=== PATIENT | female | born 1945 | race Caucasian/White ===

== ENCOUNTER → 2016-12-07 | Outpatient (CLI) | payer MEDICARE, BC | END | disposition home or self-care (01) | LOC: LABPAT 11:50 | PROVIDERS: ATTEND Orthopaedic Surgery Sports Medicine | DX: Z01.812 Encounter for preprocedural laboratory examination (principal) | CPT/HCPCS: 87070 ==

== ENCOUNTER 2016-12-15 10:56 | Inpatient (IN) | payer MEDICARE, BC ==
[2016-12-13 09:01] VITALS: BMI 20.9
[~2016-12-15 10:56] MED LIST: ACETAMINOPHEN TAB 500 MG TAB PO ONE; DEXAMETHASONE SOD PHOSPHATE 10 MG/ML 1 ML VIAL IV ONE; HYDROmorphone 1 MG/ML 1 ML SYRINGE IVP PRN; LACTATED RINGERS 1,000 ML IV SCH; MELOXICAM 7.5 MG TAB PO ONE; MIDAZOLAM 2 MG/2 ML VIAL IV PRN; ONDANSETRON 4 MG/2 ML VIAL IVP ONE; TRANEXAMIC ACID 1,000 MG in SODIUM CHLORIDE 0.9% 100 ML IVPB ONE; ceFAZolin 2 GM in SODIUM CHLORIDE 0.9% 100 ML IVPB ONE
[2016-12-15] MEDS ORDERED: LIDOCAINE 1% 20 ML VIAL (10MG/ML) FOR IV START INTRADERMA ONE (11:25)
[2016-12-15] MEDS ORDERED: PROPOFOL 10 MG/ML 20 ML VIAL IV ONE (12:25)
[2016-12-15] MEDS ORDERED: MIDAZOLAM 2 MG/2 ML VIAL ONE (12:25)
[2016-12-15] MEDS ORDERED: fentaNYL (PF) 50 MCG/ML 2 ML AMP ONE (12:25)
[2016-12-15] MEDS ORDERED: TRANEXAMIC ACID 1,000 MG/10 ML VIAL ONE (12:25)
[2016-12-15] MEDS ORDERED: SODIUM CHLORIDE 0.9% 100 ML BAG ONE (12:25)
[2016-12-15] MEDS ORDERED: MORPHINE SULFATE (PF) 0.3 MG/0.3 ML SYR ONE (12:25)
[2016-12-15] MEDS ORDERED: CLINDAMYCIN 1,800 MG in SODIUM CHLORIDE 0.9% IRRIGATIO 3,000 ML IRRIGATION ONE (12:56)
[2016-12-15] MEDS: ROPIVACAINE 246.25 MG, EPINEPHrine 0.5 MG, KETOROLAC 30 MG, cloNIDine HCL/PF 80 MCG, WA... MISCELLANE ONE ×10 (13:01→13:14)
[2016-12-15] MEDS ORDERED: LACTATED RINGERS 1,000 ML IV ONE ×2 (13:02)
[2016-12-15] MEDS ORDERED: TEMAZEPAM 15 MG CAP PO PRN (14:28)
[2016-12-15] MEDS ORDERED: MAGNESIUM HYDROXIDE 2,400 MG/10 ML CUP PO PRN (14:28)
[2016-12-15] MEDS ORDERED: HYDROcodone/APAP 7.5-325MG 1 EACH TAB PO PRN (14:28)
[2016-12-15] MEDS ORDERED: NA PHOS,M-B/NA PHOS,DI-BA 133 ML ENEMA RECTAL PRN (14:28)
[2016-12-15] MEDS ORDERED: ONDANSETRON 4 MG/2 ML VIAL IVP PRN (14:28)
[2016-12-15] MEDS ORDERED: ACETAMINOPHEN TAB 325 MG TAB PO PRN (14:28)
[2016-12-15] MEDS ORDERED: traMADol 50 MG TAB PO PRN (14:28)
[2016-12-15] MEDS ORDERED: BISACODYL 10 MG SUPP RECTAL PRN (14:28)
[2016-12-15] MEDS ORDERED: HYDROmorphone 1 MG/ML 1 ML SYRINGE IVP PRN ×3 (14:28)
[2016-12-15] MEDS ORDERED: DIAZEPAM 5 MG TAB PO PRN (14:28)
[2016-12-15] MEDS ORDERED: NALOXONE 0.4 MG/ML 1 ML VIAL IV PRN ×2 (14:28→15:16)
--- NOTE | 2016-12-15 15:04 | XR ---
EXAMINATION TYPE: XR knee limited RT DATE OF EXAM: 12/15/2016 2:54 PM CLINICAL HISTORY: Right knee pain and arthritis status post total knee replacement. TECHNIQUE: Portable AP and crosstable lateral views of the right knee are obtained immediately posto peratively. COMPARISON: None FINDINGS: Rincon osseous structures are demineralized. Metallic hardware from total right knee arthr oplasty is seen and appears satisfactory in alignment and position. There is evidence of recent surg racheal with diffuse subcutaneous and suprapatellar gas noted. IMPRESSION: METALLIC HARDWARE FROM TOTAL RIGHT KNEE ARTHROPLASTY IS SATISFACTORY IN ALIGNMENT.
[2016-12-15] MEDS ORDERED: MORPHINE SULFATE 4 MG/ML SYRINGE IVP PRN ×2 (15:16→21:41)
[2016-12-15] MEDS ORDERED: PROMETHAZINE INJ 6.25 MG in SODIUM CHLORIDE 0.9% 50 ML IVPB PRN (15:16)
[2016-12-15] MEDS ORDERED: METOCLOPRAMIDE 5 MG/ML 2 ML VIAL IVP PRN (15:16)
[2016-12-15] MEDS: NALBUPHINE 10 MG/ML AMPUL IV PRN ×2 (16:27→21:32)
[2016-12-15] MEDS: LACTATED RINGERS 1,000 ML IV SCH ×2 (16:41→19:49)
[2016-12-15] MEDS: diphenhydrAMINE 50 MG/ML 1 ML VIAL IVP PRN (19:16)
[2016-12-15] MEDS: ceFAZolin 2 GM in SODIUM CHLORIDE 0.9% 100 ML IVPB SCH (19:46)
[2016-12-15] MEDS: SENNOSIDES-DOCUSATE SODIUM 1 EACH TAB PO SCH (19:46)
[2016-12-15] MEDS: METOPROLOL TARTRATE 25 MG TAB PO SCH (19:46)
[2016-12-15] MEDS: ASPIRIN 325 MG TAB PO SCH (19:47)
--- NOTE | 2016-12-15 21:19 | OP ---
DATE OF SERVICE: 12/15/2016 SURGEON: ISAÍAS WISEMAN MD ROLLWAY WORKER: ALISHA MEJIA PA-C PREOPERATIVE DIAGNOSIS: Right knee osteoarthrosis. POSTOPERATIVE DIAGNOSIS: Right knee osteoarthrosis. OPERATION: Right total knee arthroplasty. ANESTHESIA: Spinal with sedation. ESTIMATED BLOOD LOSS: 100 mL TOURNIQUET TIME: 50 minutes @250 mmHg SPECIMENS REMOVED: COMPLICATIONS: None apparent. DRAINS: None. DISPOSITION: Post-Anesthesia Care Unit OPERATIVE FINDINGS: INDICATIONS: Maria Luz is a 70-year-old female with long-standing history of right knee pain. History and physical examination were consistent with advanced right knee osteoarthrosis. She has been through significant nonoperative management up to this point. Further treatment options were discussed and she has decided to go forward with right total knee arthroplasty. The risks of the procedure were discussed with her in detail. These risks include but are not limited to risk of infection, nerve damage, bleeding, pain, and a small risk of deep vein thrombosis which could lead to fatal probe pulmonary embolism. There is also a risk of loosening of the implant which could require revision operation. The patient understands these risks. All of her questions were answered to her satisfaction. Appropriate informed consent was obtained. DESCRIPTION OF PROCEDURE: Patient was identified in the preoperative holding area. Surgical site was marked by both the patient and myself. She was given 2 grams of Ancef IV for prophylactic purposes. She was then transferred to the operative suite, where she was placed supine on the operating room table. Spinal anesthetic was then administered and dosed per the anesthesia department without apparent complication. Examination under anesthesia was then performed. The patient had full extension. She had 110 degrees of flexion, and the medial collateral ligament, lateral collateral ligament and posterior cruciate ligaments were stable. A tourniquet was then placed high on the right upper thigh, well padded in preparation for surgery. The patient's right lower extremity was then prepped and draped in the usual sterile fashion. Standard surgical pause was then undertaken to ensure that we were operating on the correct site and that appropriate preoperative antibiotics had been given. All staff in the room were in agreement, and we proceeded. The outlines of the patella were then marked with a surgical pen. A planned 12 cm vertical incision centered over the patella was marked with a surgical pen. The leg was then exsanguinated with an Esmarch dressing. The knee was then flexed and the tourniquet was inflated to 250 mmHg. The total tourniquet time for the procedure was 50 minutes. The incision was then made with a 10 blade scalpel. Dissection was carried down sharply to the overlying fascia. Great care was taken to minimize the skin flaps. The knee was then exposed using a standard medial parapatellar approach. A small cuff of quadriceps tendon was then left for suturing. She was in a bit of valgus preoperatively. A very minimal medial release was made just to accept the retractors. The medial meniscus was then excised. The lateral meniscus was also released anteriorly. The leg was then externally rotated. The patella was everted and the knee was flexed. The retractors were then placed to protect the collateral ligaments. I then proceeded to remove the infrapatellar fat pad. This was excised sharply tangentially with the fibers of the patellar tendon. I then proceeded to remove the peripheral osteophytes. This was done with a rongeur. I then proceeded with the distal femoral resection. She did have near-full extension. A planned 9 mm resection was then done. The femoral canal was then entered in the midline of the femur approximately 10 mm anterior to the origin of the posterior cruciate ligament. The jeannie was then advanced down the center of the femur and the jeannie placed intramedullary. Based on preoperative radiographs, the angle between the anatomic and mechanical axis of the femur was approximately 4 to 5 degrees. The valgus angle of distal femoral cutting guide was then set at 4 degrees for the right knee. Distal femoral cutting guide was then advanced over the intramedullary jeannie. This was seated firmly against the femur. I then, as mentioned, planned to take 9 mm off the distal femur. The cutting block was then secured onto the femur with pins. The jig was then removed and the distal femoral cut was made through the slot of the block. The pins were then removed and the distal femoral cutting block was removed. The accuracy of the distal femoral cuts was checked with 2 flat bars. I then proceeded with femoral sizing. The posterior referencing sizing guide was held firmly against the resected distal surface of the femur. Posterior condyles were resting on the posterior plane of the guide. The sizing stylus was then placed onto the anterior femur. Size was measured at a size 8. I then assessed for femoral rotation. The plan was for 3 degrees of external rotation. Three degrees of external rotation was placed onto the jig. These holes were then marked. I then confirmed the rotation by 3 separate methods. This was done using the epicondylar axis as well as Whitesides line and posterior referencing. It was deemed that the external rotation was proper. I then went forward with placing the femoral cutting block. This was placed over the previously placed pinholes. The callie wing was then placed onto the anterior slots to ensure that we would not notch the anterior femur with the anterior femoral cut. I then proceeded with the anterior femoral cut. This was flush with the anterior cortex of the femur. Posterior cuts were then made followed by the anterior chamfer cut and then the posterior chamfer cut. The cutting block was then removed. Throughout the resection, the collateral ligaments were protected with retractors. I then placed a trial 8 femur. It fit very nice medial to lateral and fit flush with the distal end of the femur. The drill holes were then made. I then proceeded with the tibial cut. I planned for a cruciate-retaining knee. The guide was placed and set for varus, valgus and for slope. The height was set for approximately 2 mm resection from the lateral tibial plateau, which was the lower side. I was happy with the alignment and the amount of resection. The cutting block was then pinned to the proximal tibia. The alignment jeannie was removed and the proximal tibia was resected with the reciprocating saw. Again this was done with retractors protecting the collateral ligaments as well as the posterior cruciate ligament. I then proceeded to evaluate the flexion and extension gaps. A 10 mm block was then placed. The flexion and extension gaps were equal. I then proceeded with resection of the posterior osteophytes. She had very minimal posterior osteophytes. This was done using a curved osteotome. This resected the posterior osteophytes, and the posterior capsule stripping was also done off the posterior aspect of the femur at this time. The osteophytes were removed. I then proceeded with resection of the patella. The thickness of the patella was measured using the caliper. Thickness was 22 mm. Thickness of the anticipated patellar dome was then taken into account. Resection was then performed and confirmed to be equal in 4 quadrants using the caliper. Approximately 14 mm of bone remained after the resection. A 29 x 8 mm standard patellar trial was then placed. The holes were then drilled and the trial was then placed. I then proceeded with sizing of the tibial plate. A size E tibial plate fit very nicely. I then placed the trial femur, the tibial tray and the patellar button. A 10 mm trial tibial insert was also placed. The components fit very nicely. She had full extension and flexion. The extension and flexion gaps were equal and stable to both varus and valgus stress. The patella tracked appropriately. The tibial tray rotation was then marked with a Bovie. This was externally rotated properly. I then proceeded with tibial preparation. I first drilled the femoral holes and removed the femoral component. The tibial tray was then set for proper external rotation as well as mediolateral placement onto the tibia. It was then pinned into place. I then proceeded with punching the keel. I then decided to proceed with cementing of all of our components. The knee was thoroughly irrigated with sterile saline solution via pulse lavage. The lateral genicular artery was identified and cauterized. All blood was removed from the bone of the tibia, femur and patella with pulse lavage. I then proceeded with cementing. Two packs of antibiotic bone cement were prepared on the back table by the laboratory tech. I then proceeded with cementing of the tibia first. The cement was impacted into the keel as well as deeply seated into bone. A second coat of cement was then placed. The tibia was then impacted into place. Excess cement was removed with Gómez's and jokers. I then proceeded with cementing of the femoral component. The femoral component was also cemented using standard technique. Excess cement was removed. A 10 mm trial insert was then placed into the knee. It was brought into full extension with a constant axial load placed until the cement had hardened. The patellar component was then cemented. This was held firmly with a compressive device until the cement had dried. When the cement had dried, the knee was taken out of extension. All excess cement was removed from around the prosthesis. I then trialed the knee with a 10 mm insert. Flexion and extension gaps were appropriate. The knee was stable. It came into full extension. I decided to go forward with a 10 mm cross-linked cruciate-retaining tibial insert. Polyethylene was then placed onto the tibial tray and locked into place. The knee was reduced. The knee was again further irrigated with sterile saline solution with antibiotic added. The tourniquet was then deflated. The total tourniquet time for the procedure was 50 mmHg @250 mmHg. Final components were Diana Persona size 8, cruciate-retaining femoral component, a size E tibial tray, a 10 mm medial congruent cruciate-retaining polyethylene insert and a 29 x 8 mm patella. I then proceeded with closure. Again the knee was thoroughly irrigated. The quadriceps tendon and the medial retinaculum were reapproximated with #2 Ethibond suture. The extensor mechanism was then closed with a running #2 Quill suture. Subcutaneous tissues were then closed with 2-0 Vicryl interrupted suture. The skin was closed with a running 3-0 Quill suture. Dermabond was applied to the incision. Sterile compressive dressings were then applied. All sponge and needle counts were deemed correct prior to closure. The patient tolerated the procedure without apparent complication. She was transferred to the recovery room in stable condition.
[2016-12-16] MEDS: diphenhydrAMINE 50 MG/ML 1 ML VIAL IVP PRN ×2 (01:02→08:38)
[2016-12-16] MEDS: NALBUPHINE 10 MG/ML AMPUL IV PRN (02:40)
[2016-12-16] MEDS: ceFAZolin 2 GM in SODIUM CHLORIDE 0.9% 100 ML IVPB SCH (03:18)
[2016-12-16] MEDS: HYDROcodone/APAP 7.5-325MG 1 EACH TAB PO PRN ×4 (05:24→23:42)
[2016-12-16] MEDS: hydrOXYzine PAMOATE 25 MG CAP PO PRN (05:24)
[2016-12-16] MEDS: LEVOTHYROXINE 112 MCG TAB PO SCH (05:24)
[2016-12-16 07:16] LABS: Basophils % (A) 0 %; CH 30.5; CHCM 31.6; Eosinophils # (A) 0.1 k/uL (0-0.7); Eosinophils % (A) 2 %; HCT 34.8 % (34.0-46.0); HDW 2.12; HGB 11.1 gm/dL (11.4-16.0); Luc # (Auto) 0.18; Luc % (Auto) 3; Lymphocytes # (A) 1.2 k/uL (1.0-4.8); Lymphocytes % (A) 19 %; MCH 30.8 pg (25.0-35.0); MCHC 31.8 g/dL (31.0-37.0); Mean Platelet Volume 6.9; Monocytes # (A) 0.6 k/uL (0-1.0); Monocytes % (A) 9 %; Neutrophils # (A) 4.3 k/uL (1.3-7.7); Neutrophils % (A) 67 %; RBC 3.59 m/uL (3.80-5.40); RDW 13.4 % (11.5-15.5); WBC 6.4 k/uL (3.8-10.6)
[2016-12-16] MEDS: ASPIRIN 325 MG TAB PO SCH ×2 (08:35→21:16)
[2016-12-16] MEDS: PARoxetine 20 MG TAB PO SCH (08:35)
[2016-12-16] MEDS: MULTIVITAMINS, THERA 1 EACH TAB PO SCH (08:35)
--- NOTE | 2016-12-16 09:52 | P.PN ---
Progress Note - Text Date:12/16 Time: Patient is status post . Patient seen this morning with VAS score of 2.no c/o of pruritus, no c/o nausea/vomiting, comfortable and doing well.
--- NOTE | 2016-12-16 12:04 | P.PN ---
Subjective Principal diagnosis: s/p right TKA Patient is postop day 1 from right total knee arthroplasty per Dr. Tai. She has minimal complaints of pain today. Pain is at the surgical site as expected. She is denying new complaints. She denies calf pain. She denies numbness, tingling or weakness. Review of systems is negative for fever, chills , chest pain, shortness of breath or other. Objective - Vital Signs Vital signs: Vital Signs Temp 96.9 F L 12/16/16 07:30 Pulse 58 L 12/16/16 07:30 Resp 16 12/16/16 07:30 BP 123/57 12/16/16 07:30 Pulse Ox 98 12/16/16 07:30 Intake & Output 12/15/16 12/16/16 12/16/16 18:59 06:59 18:59 Intake Total 1201 240 Output Total 380 850 300 Balance 821 -850 -60 Weight 58.96 kg Intake: IV 1201 Oral 240 Output: Urine 280 850 300 Uretheral (Hemphill) 850 300 Estimated Blood Loss 100 Other: Voiding Method Indwelling Catheter Indwelling Catheter Indwelling Catheter # Voids 1 - Exam Inspection of right lower extremity shows a benign surgical wound. There is no active bleeding, dehiscence or drainage. Calf is soft and nontender. Neurological status is intact with full motor and sensation throughout the right lower extremity. There is 2+ dorsalis pedis pulses and less than 2 second cap refill present. - Constitutional General appearance: Present: no acute distress - Psychiatric Psychiatric: Present: A&O x's 3, appropriate affect, intact judgment & insight - Labs CBC & Chem 7: 12/16/16 06:39 Labs: Abnormal Lab Results - Last 24 Hours (Table) 12/16/16 Range/Units 06:39 RBC 3.59 L (3.80-5.40) m/uL Hgb 11.1 L (11.4-16.0) gm/dL Assessment and Plan (1) Osteoarthritis of right knee Narrative/Plan: She'll continue with routine postop orthopedic protocol including pain management, wound care, physical therapy, DVT prophylaxis and medical management. Plan will be for her to transfer to [facility] on 12/19/2016 Status: Acute Time with Patient: Less than 30
[2016-12-16] MEDS: LACTATED RINGERS 1,000 ML IV SCH ×2 (14:12→22:15)
--- NOTE | 2016-12-16 16:44 | PN ---
DATE OF SERVICE: 12/16/2016 Maria Luz is postoperative day number one, status post right total knee arthroplasty. She is doing very well today. She has very minimal pain, she has been ambulating with physical therapy. She is resting comfortably, celebrating her birthday in her room when I visited her today. She has no other complaints. EXAM: She is afebrile. Vital signs are stable. The dressing is dry. Incision is dry with no drainage. She has usual mild to moderate amount of postoperative swelling in the knee. The calf is soft. She has an intact flexion-extension, inversion and eversion of the foot and ankle. She has intact lateral, medial, plantar and first dorsal web space sensation and she has 2+ posterior tibial pulse with brisk capillary refill in all digits. IMPRESSION: A postoperative day number one status post right total knee arthroplasty. RECOMMENDATIONS: Maria Luz is doing quite well. We will continue on the postoperative DVT prophylaxis. The patient will continue with the postoperative physical therapy protocol as well. She is hesitant to go home as she does have unstable secondary to bilateral ankle problems. She potentially would like to go to a subacute rehab facility. She is going to be evaluated for that. All of Maria Luz's questions were answered to her satisfaction.
--- NOTE | 2016-12-16 20:49 | CONS ---
DATE OF CONSULTATION: REASON FOR CONSULTATION: Management of hypertension. HISTORY OF PRESENT ILLNESS: This is a 71-year-old female who was admitted for right knee replacement who had failed conservative measures on an outpatient basis. Patient was seen postoperatively; denies having any acute issues. Patient was apparently able to ambulate to the restroom without any difficulty. Denies having any chest pressure, nausea, vomiting, abdominal pain or any complaints of tachycardia. Past medical history includes: 1. SVT. 2. GERD. 3. Hypothyroidism. 4. Hypertension. 5. Depression. ALLERGIES include PENICILLIN. SOCIAL HISTORY: Denies any smoking, alcohol or illicit drug use. FAMILY HISTORY: Not pertinent to current admission. Medications were reviewed. PHYSICAL EXAM: VITAL SIGNS: Temperature 96.9, heart rate 58, respiratory rate 16, blood pressure 123/57. Saturating 98% on room air. GENERALLY: Patient appears to be alert, oriented x3. HEENT: The pupils are equal and reactive to light and accommodation. HEART: S1, S2 present. No murmur appreciated. LUNGS: Good air entry. No wheezing or rhonchi noted. ABDOMINAL EXAM: Soft, nontender, no organomegaly appreciated. GENITOURINARY: No Hemphill in place. EXTREMITIES: Pulses can be palpated distally. Denies any tenderness on gross palpation. SKIN: On a gross skin exam does not appear to have any purpura or any skin rashes that were noted. NEUROLOGICALLY: Grossly cranial nerves 2-12 intact. No motor or sensory deficits noted. LABORATORY DATA: Hemoglobin is 11.1, hematocrit 34.8. White count is 6.4. ASSESSMENT AND PLAN: 1. Severe osteoarthritis, status post right knee replacement. 2. History of hypertension that is controlled. 3. History of anxiety. 4. History of depression. 5. Hypothyroidism. 6. History of supraventricular tachycardia. PLAN: Patient's blood pressures are stable. Exam appears to be within normal limits. Continue ongoing care and physical therapy recommendations per you. Thank you for the consultation. Will follow the patient intermittently with you.
[2016-12-16] MEDS: SENNOSIDES-DOCUSATE SODIUM 1 EACH TAB PO SCH (21:15)
[2016-12-16] MEDS: METOPROLOL TARTRATE 25 MG TAB PO SCH (21:15)
[2016-12-17] MEDS: LACTATED RINGERS 1,000 ML IV SCH ×3 (03:54→20:38)
[2016-12-17] MEDS: LEVOTHYROXINE 112 MCG TAB PO SCH (05:34)
[2016-12-17] MEDS: HYDROcodone/APAP 7.5-325MG 1 EACH TAB PO PRN ×4 (05:53→22:19)
--- NOTE | 2016-12-17 08:56 | P.PN ---
Subjective Principal diagnosis: Status post right total knee arthroplasty This is a pleasant 71-year-old female who is status post right total knee arthroplasty. She seen and evaluated at bedside today. She states that her pain is well-controlled. She has no other complaints at this time. She has had a bowel movement. She's been up ambulating with a walker. She does have some chronic history of foot pain is worried about her balance secondary to her feet. Subsequently she is requesting rehab placement. Objective - Vital Signs Vital signs: Vital Signs Temp 98 F 12/17/16 02:00 Pulse 63 12/17/16 02:00 Resp 18 12/17/16 02:00 BP 116/55 12/17/16 02:00 Pulse Ox 94 L 12/17/16 02:00 Intake & Output 12/16/16 12/17/16 12/17/16 18:59 06:59 18:59 Intake Total 240 Output Total 300 Balance -60 Intake: Oral 240 Output: Urine 300 Uretheral (Hemphill) 300 Other: Voiding Method Indwelling Catheter Toilet # Voids 1 2 - Exam The patient does not appear in acute distress. Alert and orientated 3. Dressing is clean dry and intact. Incision appears fine with no erythema or active drainage. Calf is soft and nontender. Good foot and ankle motion without difficulty. Sensation and circulatory status is intact. - Labs CBC & Chem 7: 12/16/16 06:39 Assessment and Plan (1) Primary osteoarthritis of right knee Status: Acute (2) Status post right knee replacement Status: Acute Plan: 1. Continue with routine postoperative care. 2. Anticoagulation with aspirin. 3. Physical therapy and CPM today. 4. Appreciate input from medicine. 5. Anticipate discharge to rehab likely on Monday.
[2016-12-17] MEDS: ASPIRIN 325 MG TAB PO SCH ×2 (09:10→20:39)
[2016-12-17] MEDS: PARoxetine 20 MG TAB PO SCH (09:10)
[2016-12-17] MEDS: MULTIVITAMINS, THERA 1 EACH TAB PO SCH (09:10)
[2016-12-17] MEDS: SENNOSIDES-DOCUSATE SODIUM 1 EACH TAB PO SCH (20:39)
[2016-12-17] MEDS: METOPROLOL TARTRATE 25 MG TAB PO SCH (20:39)
[2016-12-18] MEDS: LEVOTHYROXINE 112 MCG TAB PO SCH (04:43)
[2016-12-18] MEDS: HYDROcodone/APAP 7.5-325MG 1 EACH TAB PO PRN ×4 (04:43→20:27)
[2016-12-18 07:23] LABS: Basophils % (A) 1 %; CH 30.7; CHCM 32.5; Eosinophils # (A) 0.2 k/uL (0-0.7); Eosinophils % (A) 4 %; HCT 34.2 % (34.0-46.0); HDW 2.15; HGB 11.2 gm/dL (11.4-16.0); Luc # (Auto) 0.19; Luc % (Auto) 3; Lymphocytes # (A) 1.3 k/uL (1.0-4.8); Lymphocytes % (A) 20 %; MCH 31.1 pg (25.0-35.0); MCHC 32.7 g/dL (31.0-37.0); Mean Platelet Volume 7.2; Monocytes # (A) 0.5 k/uL (0-1.0); Monocytes % (A) 8 %; Neutrophils # (A) 4.2 k/uL (1.3-7.7); Neutrophils % (A) 65 %; RDW 13.5 % (11.5-15.5); WBC 6.4 k/uL (3.8-10.6); WBC (Perox) 6.54
[2016-12-18] MEDS: ASPIRIN 325 MG TAB PO SCH ×2 (08:46→20:26)
[2016-12-18] MEDS: PARoxetine 20 MG TAB PO SCH (08:47)
[2016-12-18] MEDS: MULTIVITAMINS, THERA 1 EACH TAB PO SCH (08:47)
--- NOTE | 2016-12-18 09:15 | P.PN ---
Subjective Principal diagnosis: Status post right total knee arthroplasty This is a pleasant 71-year-old female who is status post right total knee arthroplasty. She is postoperative day #3. She is seen and evaluated at bedside today. She states that her pain is well-controlled. She has no other complaints at this time. She has had a bowel movement. She's been up ambulating with a walker. Objective - Vital Signs Vital signs: Vital Signs Temp 98.0 F 12/18/16 01:32 Pulse 65 12/18/16 01:32 Resp 16 12/18/16 03:03 BP 114/72 12/18/16 01:32 Pulse Ox 95 12/18/16 01:32 Intake & Output 12/17/16 12/18/16 12/18/16 18:59 06:59 18:59 Intake Total 360 Balance 360 Intake: Oral 360 Other: Voiding Method Toilet # Voids 1 1 - Exam The patient does not appear in acute distress. Alert and orientated 3. Dressing is clean dry and intact. Incision appears fine with no erythema or active drainage. Calf is soft and nontender. Good foot and ankle motion without difficulty. Sensation and circulatory status is intact. - Labs CBC & Chem 7: 12/18/16 06:45 Labs: Abnormal Lab Results - Last 24 Hours (Table) 12/18/16 Range/Units 06:45 RBC 3.60 L (3.80-5.40) m/uL Hgb 11.2 L (11.4-16.0) gm/dL Assessment and Plan (1) Primary osteoarthritis of right knee Status: Acute (2) Status post right knee replacement Status: Acute Plan: 1. Continue with routine postoperative care. 2. Anticoagulation with aspirin. 3. Physical therapy and CPM today. 4. Appreciate input from medicine. 5. Anticipate discharge to rehab likely on Monday.
[2016-12-18] MEDS: hydrOXYzine PAMOATE 25 MG CAP PO PRN ×3 (09:48→20:27)
[2016-12-18] MEDS: LACTATED RINGERS 1,000 ML IV SCH ×2 (12:53→19:20)
[2016-12-18] MEDS: METOPROLOL TARTRATE 25 MG TAB PO SCH (20:27)
[2016-12-18] MEDS: SENNOSIDES-DOCUSATE SODIUM 1 EACH TAB PO SCH (20:27)
[2016-12-19] MEDS: HYDROcodone/APAP 7.5-325MG 1 EACH TAB PO PRN ×3 (03:04→14:09)
[2016-12-19] MEDS: hydrOXYzine PAMOATE 25 MG CAP PO PRN ×3 (03:05→14:09)
[2016-12-19] MEDS: LEVOTHYROXINE 112 MCG TAB PO SCH (05:01)
[2016-12-19] MEDS: LACTATED RINGERS 1,000 ML IV SCH (08:31)
[2016-12-19] MEDS: PARoxetine 20 MG TAB PO SCH (08:31)
[2016-12-19] MEDS: MULTIVITAMINS, THERA 1 EACH TAB PO SCH (08:31)
[2016-12-19] MEDS: ASPIRIN 325 MG TAB PO SCH (08:31)
--- NOTE | 2016-12-19 09:10 | P.DS ---
Providers Date of admission: 12/15/16 10:56 Expected date of discharge: 12/19/16 Attending physician: Ermias Tai Consults: 12/15/16 14:28 Consult Physician Routine Consulting Provider: Imtiaz Bolanos Consult Reason/Comments: post op medical management Do you want consulting provider notified?: Yes Primary care physician: Stated None - Discharge Diagnosis(es) (1) Osteoarthritis of right knee Patient was admitted to the OR 12/15/2016 to undergo right total knee arthroplasty after failed conservative measures as an outpatient. The possible risks, complications, benefits were all reviewed with patient preoperatively, she understood and desired proceed. She underwent the above procedure which she tolerated well without complication. Her postoperative hospital course has remained without complication. On day of discharge she is afebrile, vital signs stable, labs within acceptable ranges, wound benign, abdomen soft nontender, neurovascular status intact, calf is soft and nontender, 2+ dorsalis pedis pulses and less than 2 second cap refill is present, denying any new complaints. Review of systems is negative for fever, chills, chest pain, shortness breath, nausea, vomiting, dizziness, numbness, tingling, weakness, headaches, slurred speech or other. Current Visit: Yes Status: Acute Priority: Medium Procedures: Right total knee arthroplasty Patient Condition at Discharge: Good Plan - Discharge Summary New Discharge Prescriptions: Aspirin 325 mg PO DAILY #60 tab Docusate [Colace] 100 mg PO BID #60 capsule HYDROcodone/APAP 7.5-325MG [Hadley 7.5-325] 1 - 2 each PO Q6HR PRN #90 tab PRN Reason: Pain Discharge Medication List Levothyroxine Sodium [Synthroid] 112 mcg PO DAILY 03/18/14 [History] PARoxetine [Paxil] 20 mg PO DAILY 03/18/14 [History] Ranitidine HCl [Zantac] 150 mg PO DAILY PRN 03/18/14 [History] Bryan 1 tab PO DAILY 12/13/16 [History] Ascorbic Acid [Vitamin C] 500 mg PO DAILY 12/13/16 [History] Aspirin/Caffeine [Anacin 400-32 mg Tablet] 1 tab PO DAILY 12/13/16 [History] Calcium Carbonate/Vitamin D3 [Calcium 500-Vit D3 600 Tablet] 1 tab PO DAILY 05/22 [History] Cholecalciferol [Vitamin D3] 1,000 unit PO DAILY 12/13/16 [History] HYDROcodone/APAP 5-325MG [Hadley 5-325] 1 tab PO Q6HR PRN 12/13/16 [History] Lecithin, Soy [Lecithin] 400 mg PO DAILY 12/13/16 [History] Meloxicam [Mobic] 15 mg PO DAILY 12/13/16 [History] Metoprolol Tartrate [Lopressor] 25 mg PO HS 12/13/16 [History] [place]-3 Fatty Acids/Fish Oil [Fish Oil 1,000 mg Softgel] 1 cap PO DAILY [History] Vitamin B Complex 1 cap PO DAILY 12/13/16 [History] Zinc 50 mg PO DAILY 12/13/16 [History] Acetaminophen [Tylenol] 500 mg PO Q4-6H PRN 12/15/16 [History] Multivitamins, Thera [Multivitamin] 1 tab PO DAILY@1200 12/15/16 [History] Aspirin 325 mg PO DAILY #60 tab 12/19/16 [Rx] Docusate [Colace] 100 mg PO BID #60 capsule 12/19/16 [Rx] HYDROcodone/APAP 7.5-325MG [Hadley 7.5-325] 1 - 2 each PO Q6HR PRN #90 tab [Rx] Follow up Appointment(s)/Referral(s): Ermias Tai MD [STAFF PHYSICIAN] - 2 Weeks Activity/Diet/Wound Care/Special Instructions: Take meds as directed Keep wound clean and dry Weight-bear as tolerated Follow-up with Dr. Tai in office, [phone] Discharge Disposition: TRANSFER TO SNF/ECF
[2016-12-19 12:01] VITALS: BP 125/69; PULSE 65; RESP 16; TEMP 97.8
--- NOTE | 2016-12-19 13:46 | XR ---
EXAMINATION TYPE: XR chest 2V DATE OF EXAM: 12/19/2016 1:40 PM COMPARISON: 12/11/2015 TECHNIQUE: PA and lateral views submitted. HISTORY: ECF placement FINDINGS: The lungs are clear and there is no pneumothorax, pleural effusion, or focal pneumonia. Hyperinflat ion suggests COPD. Biapical pleural thickening noted. There is a granuloma in the left upper lobe. 1 cm nodule right lung base. Previous surgery involving the right shoulder noted. IMPRESSION: 1. No acute process. COPD and evidence of granuloma. 2. 1 cm nodule right lung base. Follow-up x-ray with nipple markers could be obtained.
== END 2016-12-19 15:50 | DRG 470 ==
LOC: 2ORMAIN 10:56 → 3SUR 14:42
PROVIDERS: ADMIT Orthopaedic Surgery Sports Medicine; ATTEND Orthopaedic Surgery Sports Medicine
PROC: 0SRC0J9 Replacement of Right Knee Joint with Synthetic Substitute, Cemented, Open Approach (ICD-10-PCS; principal; 2016-12-15 12:30)
DX: M17.11 Unilateral primary osteoarthritis, right knee (principal); I47.1 Supraventricular tachycardia; I10 Essential (primary) hypertension; E03.9 Hypothyroidism, unspecified; M21.42 Flat foot [pes planus] (acquired), left foot; M21.41 Flat foot [pes planus] (acquired), right foot; Z96.652 Presence of left artificial knee joint; K21.9 Gastro-esophageal reflux disease without esophagitis; F32.9 Major depressive disorder, single episode, unspecified; G89.29 Other chronic pain; Z79.899 Other long term (current) drug therapy; Z79.1 Long term (current) use of non-steroidal anti-inflammatories (NSAID); Z79.891 Long term (current) use of opiate analgesic; Z88.0 Allergy status to penicillin
CPT/HCPCS: 71020; 85025

== ENCOUNTER → 2017-05-31 | Outpatient (CLI) | payer MEDICARE, BC ==
--- NOTE | 2017-05-31 12:07 | XR ---
EXAMINATION TYPE: XR chest 2V DATE OF EXAM: 05/31/2017 COMPARISON: 12/19/16 HISTORY: Shortness of breath TECHNIQUE: Frontal and lateral views of the chest are obtained. FINDINGS: Scattered senescent parenchymal changes noted. Hyperinflation compatible with COPD. No evidence for infiltrate. No evidence for atelectasis. Heart size is stable. Mediastinal structures are stable and grossly unremarkable. No evidence for hilar prominence. Degenerative changes dorsal spine. IMPRESSION: 1. No evidence for acute pulmonary disease.
== END | disposition home or self-care (01) ==
LOC: RADXRMAIN 11:43
PROVIDERS: ATTEND Family Medicine
DX: R91.1 Solitary pulmonary nodule (principal)
CPT/HCPCS: 71020

== ENCOUNTER → 2020-08-18 | Outpatient (CLI) | payer BC, MEDICARE ==
[2020-08-18 15:32] LABS: HCT 45.3 % (34.0-46.0); HGB 14.8 gm/dL (11.4-16.0); MCHC 32.6 g/dL (31.0-37.0); Mean Platelet Volume 7.3; Platelet Count 278 k/uL (150-450); RBC 4.63 m/uL (3.80-5.40); RDW 13.2 % (11.5-15.5); WBC 6.5 k/uL (3.8-10.6)
[2020-08-18 15:41] LABS: Albumin 4.3 g/dL (3.5-5.0); Calcium 10.3 mg/dL (8.4-10.2); Total Bilirubin 0.5 mg/dL (0.2-1.3); Total Protein 7.7 g/dL (6.3-8.2)
[2020-08-18 15:53] LABS: Appearance,Urine Clear (Clear); Bacteria,Urine Occasional /hpf; Bilirubin,Urine Negative (Negative); Blood,Urine Negative (Negative); Color,Urine Yellow; Glucose,Urine (UA) Negative (Negative); Hyaline Casts,Urine 9 /lpf (0-2); Ketones,Urine Negative (Negative); Leukocyte Esterase,Urine Small (Negative); Mucus,Urine Rare /hpf; Nitrite,Urine Negative (Negative); PH, Urine 5.5 (5.0-8.0); Protein,Urine Negative (Negative); RBC,Urine 2 /hpf (0-5); Specific Gravity,Urine 1.025 (1.001-1.035); Squamous Epithelial Cell,Urine 1 /hpf (0-4); Urobilinogen,Urine <2.0 mg/dL (<2.0); WBC,Urine 12 /hpf (0-5)
[2020-08-18 16:01] LABS: INR 0.9 (<1.2); Partial Thromboplastin Time 24.5 sec (22.0-30.0); Prothrombin Time 9.8 sec (9.0-12.0)
== END | disposition home or self-care (01) ==
LOC: LABPAT 11:59
PROVIDERS: ATTEND Orthopaedic Surgery
DX: Z01.818 Encounter for other preprocedural examination (principal); Z01.812 Encounter for preprocedural laboratory examination; M16.11 Unilateral primary osteoarthritis, right hip
CPT/HCPCS: 80053; 81001; 85027; 85610; 85730; 86850; 86900; 86901; 87070; 93005

== ENCOUNTER 2020-08-25 08:17 | Day surgery (SDC) | payer BC, MEDICARE ==
[2020-08-19 14:23] VITALS: BMI 20.7
[~2020-08-25 08:17] MED LIST changes: +GABAPENTIN 300 MG CAP PO ONE; -HYDROmorphone 1 MG/ML 1 ML SYRINGE IVP PRN; -LACTATED RINGERS 1,000 ML IV SCH; +LIDOCAINE 1% (10MG/ML) FOR IV START INTRADERMA PRN; -ceFAZolin 2 GM in SODIUM CHLORIDE 0.9% 100 ML IVPB ONE
[2020-08-25] MEDS: LACTATED RINGERS 1,000 ML IV SCH (08:54)
[2020-08-25] MEDS ORDERED: ePHEDrine SULFATE/0.9% NACL/PF 50 MG/5 ML SYRINGE IV ONE (08:58)
[2020-08-25] MEDS ORDERED: PROPOFOL 10 MG/ML 20 ML VIAL IV ONE (08:58)
[2020-08-25] MEDS ORDERED: TRANEXAMIC ACID 1,000 MG/10 ML VIAL ONE (08:58)
[2020-08-25] MEDS ORDERED: SODIUM CHLORIDE 0.9% IRRIG 1,000 ML BTL IRRIGATION ONE (08:58)
[2020-08-25] MEDS ORDERED: HEPARIN SODIUM,PORCINE 10,000 UNIT/ML 1 ML VIAL ONE (08:58)
[2020-08-25] MEDS ORDERED: MIDAZOLAM 2 MG/2 ML VIAL ONE (08:58)
[2020-08-25] MEDS ORDERED: fentaNYL (PF) 50 MCG/ML 2 ML AMP ONE (08:58)
[2020-08-25] MEDS ORDERED: diphenhydrAMINE 50 MG/ML 1 ML VIAL ONE (08:58)
[2020-08-25] MEDS ORDERED: SODIUM CHLORIDE 0.9% 100 ML BAG ONE (08:58)
[2020-08-25] MEDS ORDERED: ceFAZolin 3,000 MG in SODIUM CHLORIDE 0.9% IRRIGATIO 3,000 ML IRRIGATION ONE (09:04)
[2020-08-25] MEDS ORDERED: NALOXONE 0.4 MG/ML 1 ML VIAL IV PRN (09:14)
[2020-08-25] MEDS ORDERED: MAGNESIUM HYDROXIDE 2,400 MG/10 ML CUP PO PRN (09:14)
[2020-08-25] MEDS ORDERED: ONDANSETRON 4 MG/2 ML VIAL IVP PRN (09:14)
[2020-08-25] MEDS ORDERED: HYDROcodone/APAP 5-325MG 1 EACH TAB PO PRN (09:14)
[2020-08-25] MEDS ORDERED: HYDROmorphone 0.5 MG/0.5 ML SYRINGE IVP PRN ×3 (09:14)
[2020-08-25] MEDS: ROPIVACAINE 246.25 MG, EPINEPHrine 0.5 MG, KETOROLAC 30 MG, cloNIDine HCL/PF 80 MCG, WA... MISCELLANE ONE ×10 (09:25→10:12)
[2020-08-25] MEDS ORDERED: LACTATED RINGERS 1,000 ML IV ONE (09:59)
--- NOTE | 2020-08-25 10:20 | P.OP ---
Date of Procedure: 08/25/20 Preoperative Diagnosis: severe osteoarthritis right hip Postoperative Diagnosis: severe osteoarthritis right hip Procedure(s) Performed: right total hip arthroplasty with a direct anterior approach Implants: Harley and nephew Polarstem size 3 standard Harley [employer] Nephew R3, 3 hole acetabular shell, 52 mm Harley [employer] Nephew reflection 6.5 mm cancellus screw, 25 mm 2, 20 mm Harley [employer] Nephew R3, XLPE 20 acetabular liner Harley [employer] Nephew Oxinium femoral head 36 m, +0 All components were press-fit. The articulation is Oxinium on polyethylene. Anesthesia: spinal Surgeon: Luis M Walker Chain Carrier #1: Rebecca Pittman Estimated Blood Loss (ml): 150 Pathology: other (bone) Condition: stable Disposition: PACU Indications for Procedure: After failure of conservative treatment we discussed the surgical and nonsurgical treatment options at length. Patient wishes to proceed with a total hip arthroplasty with a direct anterior approach. Complications specific to this procedure were discussed at length, including but not limited to infection, leg length discrepancy, dislocation, and nerve injury. Covid-19 was also discussed at length with the patient, and they are aware of the current policies and procedures. The patient was given the option of delaying surgery, but they elect to proceed knowing these risks. Patient is aware of all these complications and informed consent was obtained Operative Findings: the operative findings are consistent with severe osteoarthritis of the right hip Description of Procedure: Patient was seen and evaluated in the preoperative area, consent was reviewed, and the surgical site was marked with a skin marker. Patient was then brought to the operating room and given prophylactic antibiotics intravenously. 1 g of Tranexamic acid was also given. A spinal anesthetic was administered by the anesthesia department. The patient was then placed on the [place] table with the bony prominences well-padded. The hip area was then prepped and draped in usual sterile fashion. A universal timeout was then performed, which confirmed the patient's name, surgical site, ALLERGIES, and procedure being performed. Next the incision site was located at 1 cm distal and 1 cm lateral to the anterior superior iliac spine. The skin and subcutaneous tissues were sharply incised. Incision was carefully dissected down to the fascia overlying the tensor fascia candelaria muscle. This fascia was then incised in line with the incision. Next, using blunt finger dissection, the tensor fascia candelaria muscle was dissected off its investing fascia. The muscle was then carefully retracted laterally with a cobra retractor over the lateral neck of the femur. Next, the circumflex vessels were identified and cauterized using the AquaMantis device. The anterior hip capsule was then exposed. The capsule was then opened and an inverted T fashion. Cobra retractors were then placed intracapsularly. The proximal femur was then visualized. The femoral neck was then osteotomized appropriate level above the lesser trochanter. Small amount of traction was placed with the [place] table. A small wedge of bone was then removed from the remaining femoral head. Next, using a corkscrew femoral head was easily removed from the acetabulum. On gross visual inspection, the femoral head had complete loss of articular cartilage in multiple periarticular osteophytes. Attention was then turned to the acetabulum. the acetabulum was exposed and any remaining labrum was excised. Sequential reaming of the acetabulum was performed using fluoroscopic guidance. After the first reaming, there was a large medial defect in the acetabulum. the femoral head was then used to bone graft the medial defect in the femoral head was reamed with the acetabulum in situ. When the appropriate size was reached, a trial was then placed. The position and fit of the trial was checked with fluoroscopy. The trial was then removed. Then, using fluoroscopic guidance, the final implant was impacted at 20 of anteversion and 40 of abduction, and fully seated in the acetabulum. 3 screws were then placed in the acetabulum. Again fluoroscopy was used to check position of the screws. Next, the liner was then impacted, with a 20 elevated liner located in the anterior superior quadrant. Component locking was confirmed. Attention was then directed to the femur. With the aid of the [place] table, the femur was externally rotated to approximately 130, extended, and abducted under the opposite leg. A side hook was then placed under the proximal femur, and the side hook elevator was used to elevate the proximal femur. Retractors were then placed. A capsular release was performed, as well as a release of the conjoined tendon, which afforded excellent visualization of the proximal femur. Next, a box osteotome was used to lateralize the proximal femur. A visual merchandise manager was then used to locate the femoral canal. Sequential broaching was then performed with appropriate size which afforded excellent fixation in the proximal femur. A trial was then placed with appropriate head and neck, and the hip was gently reduced with the aid of the [place] table. Fluoroscopy was then used to check position of the components, as well as to ensure equal leg lengths. The hip was then gently dislocated and the trials were then removed. Final implants were then impacted and the hip was again reduced. Final fluoroscopic x-rays confirmed that the components were in anatomic position, as well as equal leg lengths. The hip was also taken through range of motion, and found to be stable. The hip was then copiously irrigated with antibiotic solution with pulsatile lavage. The hip was then irrigated with Irrisept solution. The soft tissues were then injected with a ropivacaine solution, which consisted of 246.25 mg of ropivacaine, 0.5 mg of epinephrine, 30 mg of Toradol, 80 g of clonidine, and 48.45 mL of sterile water, for a total of 100 mL of fluid injected. A second dose of 1 g of Tranexamic acid was also given. the fascia was then closed with 2-0 strata fix suture. The subcutaneous tissue was closed with 3-0 Vicryl. The subcuticular tissue was closed with 3-0 strata fix suture. The skin was then closed with Dermabond glue and a sterile silver dressing. The patient was then transferred to the recovery room in stable condition. The multimedia assistant YURIY Reyna was required due to the complexity of surgery, and the need for skilled ophthalmic surgical assistant for positioning, draping, exposure, retraction, and closure of the wound.
--- NOTE | 2020-08-25 10:49 | XR ---
EXAMINATION TYPE: XR Hip Limited RT DATE OF EXAM: 08/25/2020 Comparison: None Clinical History: 74-year-old female TOTAL ANT RIGHT HIP Findings: 2 intraoperative fluoroscopic images during right hip total arthroplasty. Total fluoroscopy time 52 seconds. Impression: Intraoperative fluoroscopy during right hip total arthroplasty.
--- NOTE | 2020-08-25 11:06 | XR ---
EXAMINATION TYPE: XR Hip Limited RT DATE OF EXAM: 08/25/2020 Comparison: None Clinical History: 74-year-old female Status post hip surgery, assess surgical alignment Findings: Image shows placement of right ventricular enlargement by CT. Both acetabular cup and femoral stem co mponents of the prosthesis appear well seated without prosthetic fracture. Soft tissue air related to recent operation. Alignment grossly anatomic. Impression: Uncomplicated postoperative appearance right total hip arthroplasty.
[2020-08-25] MEDS: HYDROmorphone 0.5 MG/0.5 ML SYRINGE IVP PRN ×2 (11:50→13:30)
[2020-08-25] MEDS: SODIUM CHLORIDE 0.9% 1,000 ML IV SCH (14:32)
--- NOTE | 2020-08-25 15:18 | FL ---
EXAMINATION TYPE: FL guidance operating room DATE OF EXAM: 08/25/2020 CLINICAL HISTORY: Right hip pain. TECHNIQUE: Fluoroscopy. COMPARISON: None. FINDINGS: Fluoroscopic guidance was provided during hip replacement procedure performed by Dr. Neo meraz. A total of 0.52 minutes of fluoroscopic time was utilized during the procedure and 0 spot image s was acquired. IMPRESSION: As Above.
[2020-08-25] MEDS: HYDROcodone/APAP 5-325MG 1 EACH TAB PO PRN (16:43)
[2020-08-25] MEDS ORDERED: SENNOSIDES-DOCUSATE SODIUM 1 EACH TAB PO SCH (21:00)
[2020-08-25] MEDS ORDERED: METOPROLOL TARTRATE 25 MG TAB PO SCH (21:00)
[2020-08-25] MEDS: ASPIRIN 325 MG TAB PO SCH (21:05)
[2020-08-26] MEDS: HYDROcodone/APAP 5-325MG 1 EACH TAB PO PRN ×3 (00:20→11:27)
[2020-08-26] MEDS: SODIUM CHLORIDE 0.9% 1,000 ML IV SCH (01:57)
[2020-08-26] MEDS: LACTATED RINGERS 1,000 ML IV SCH (02:02)
[2020-08-26] MEDS ORDERED: LEVOTHYROXINE 112 MCG TAB PO SCH (06:30)
[2020-08-26 07:14] LABS: Basophils % (A) 0 %; Eosinophils # (A) 0.1 k/uL (0-0.7); Eosinophils % (A) 1 %; HCT 33.5 % (34.0-46.0); Lymphocytes % (A) 13 %; MCH 31.9 pg (25.0-35.0); MCHC 32.1 g/dL (31.0-37.0); MCV 99.5 fL (80.0-100.0); Mean Platelet Volume 7.4; Monocytes # (A) 0.6 k/uL (0-1.0); Monocytes % (A) 8 %; Neutrophils # (A) 5.9 k/uL (1.3-7.7); Neutrophils % (A) 76 %; Platelet Count 191 k/uL (150-450); RBC 3.36 m/uL (3.80-5.40); RDW 13.3 % (11.5-15.5); WBC 7.7 k/uL (3.8-10.6)
[2020-08-26 07:18] LABS: HGB 10.7 gm/dL (11.4-16.0)
[2020-08-26 08:11] VITALS: BP 97/53; PULSE 60; RESP 16; TEMP 98.2
--- NOTE | 2020-08-26 08:22 | P.DS ---
Providers Expected date of discharge: 08/26/20 Attending physician: Luis M Walker Consults: 08/25/20 09:14 Consult Physician Routine Consulting Provider: Gary Velazquez Reason/Comments: medical management Do you want consulting provider notified?: Yes Primary care physician: Corrie Dawson - Discharge Diagnosis(es) (1) Osteoarthritis of right hip Current Visit: Yes Status: Acute (2) S/P total hip arthroplasty Current Visit: Yes Status: Acute Hospital Course: This is a 74-year-old female with known history of degenerative arthritis of the right hip. The patient presents for evaluation. After discussion and consideration patient elects to proceed with total hip arthroplasty. The patient is seen preoperatively by Dr. Walker and medically cleared for surgery by their primary care physician. Patient is admitted to [facility] on 08/25/2020 for total hip arthroplasty. The procedures performed without complication or sequelae. The patient is doing well postoperatively. Labs and vital signs are stable on day of discharge. On day of discharge patient's hip incision is healing well. There is minimal erythema. There is no drainage noted at this time. There is minimal soft tissue swelling to the hip and thigh. Patient has full foot and ankle motion without difficulty or pain. Calf is soft and nontender to palpation. Neurovascular status to the right lower extremity is intact. Patient is discharged home in good condition. Opioid start talking form is reviewed and signed at patient bedside. Please see med rec for accurate list of home medications. Plan - Discharge Summary Discharge Rx Participant: Yes New Discharge Prescriptions: New Aspirin 325 mg PO BID #60 tab HYDROcodone/APAP 5-325MG [[place] 5-325] 1 - 2 tab PO Q6HR PRN #48 tab PRN Reason: Pain Sennosides [Senokot] 2 tab PO DAILY PRN #60 tablet PRN Reason: Constipation No Action PARoxetine [Paxil] 10 mg PO DAILY Levothyroxine Sodium [Synthroid] 112 mcg PO DAILY Cholecalciferol [Vitamin D3 (25 Mcg = 1000 Iu)] 2,000 unit PO DAILY Ascorbic Acid [Vitamin C] 2,000 mg PO DAILY Metoprolol Tartrate [Lopressor] 25 mg PO HS Zinc 100 mg PO DAILY Vitamin B Complex 2 cap PO BID [place]-3 Fatty Acids/Fish Oil [Fish Oil 1,000 mg Softgel] 4 cap PO BID Lecithin, Soy [Lecithin] 800 mg PO BID Calcium Carbonate/Vitamin D3 [Calcium 500-Vit D3 600 Tablet] 1 tab PO BID [place] 1 tab PO DAILY Acetaminophen [Tylenol] 500 - 1,000 mg PO Q4-6H PRN PRN Reason: Pain Multivitamins, Thera [Multivitamin (formulary)] 1 tab PO TID Aspirin/Caffeine [Anacin 400-32 mg Tablet] 3 each PO BID PRN PRN Reason: Pain Famotidine [Pepcid AC] 10 mg PO BID HYDROcodone/APAP 5-325MG [[place] 5-325] 1 tab PO Q6HR PRN PRN Reason: Pain Losartan [Cozaar] 25 mg PO DAILY Meloxicam [Mobic] 15 mg PO DAILY Discharge Medication List Levothyroxine Sodium [Synthroid] 112 mcg PO DAILY 03/18/14 [History] PARoxetine [Paxil] 10 mg PO DAILY 03/18/14 [History] [place] 1 tab PO DAILY 12/13/16 [History] Ascorbic Acid [Vitamin C] 2,000 mg PO DAILY 12/13/16 [History] Calcium Carbonate/Vitamin D3 [Calcium 500-Vit D3 600 Tablet] 1 tab PO BID 12/13/16 [History] Cholecalciferol [Vitamin D3 (25 Mcg = 1000 Iu)] 2,000 unit PO DAILY 12/13/16 [History] Lecithin, Soy [Lecithin] 800 mg PO BID 12/13/16 [History] Metoprolol Tartrate [Lopressor] 25 mg PO HS 12/13/16 [History] [place]-3 Fatty Acids/Fish Oil [Fish Oil 1,000 mg Softgel] 4 cap PO BID 12/13/16 [History] Vitamin B Complex 2 cap PO BID 12/13/16 [History] Zinc 100 mg PO DAILY 12/13/16 [History] Acetaminophen [Tylenol] 500 - 1,000 mg PO Q4-6H PRN 12/15/16 [History] Multivitamins, Thera [Multivitamin (formulary)] 1 tab PO TID 12/15/16 [History] Aspirin/Caffeine [Anacin 400-32 mg Tablet] 3 each PO BID PRN 08/19/20 [History] Famotidine [Pepcid AC] 10 mg PO BID 08/19/20 [History] HYDROcodone/APAP 5-325MG [[place] 5-325] 1 tab PO Q6HR PRN 08/19/20 [History] Losartan [Cozaar] 25 mg PO DAILY 08/19/20 [History] Meloxicam [Mobic] 15 mg PO DAILY 08/19/20 [History] Aspirin 325 mg PO BID #60 tab 08/26/20 [Rx] HYDROcodone/APAP 5-325MG [[place] 5-325] 1 - 2 tab PO Q6HR PRN #48 tab 08/26/20 [Rx] Sennosides [Senokot] 2 tab PO DAILY PRN #60 tablet 08/26/20 [Rx] Follow up Appointment(s)/Referral(s): Luis M Walker DO [Doctor of Osteopathic Medicine] - 2 Weeks Activity/Diet/Wound Care/Special Instructions: Weightbearing as tolerated with walker. Leave dressing intact. Dressing may be removed by home care nurse or by patient in 10 days. May shower with dressing on. Please take aspirin 325mg twice daily for 30 days to prevent blood clots. Recommend use of compression stockings daily until follow up to help prevent swelling and blood clots. May remove at night before sleeping. Please follow-up with [facility] in 2 weeks and call with any questions or concerns, . Discharge Disposition: HOME WITH HOME HEALTH SERVICES
[2020-08-26] MEDS: ASPIRIN 325 MG TAB PO SCH (08:34)
[2020-08-26] MEDS ORDERED: LOSARTAN 25 MG TAB PO SCH (09:00)
[2020-08-26] MEDS ORDERED: MELOXICAM 7.5 MG TAB PO SCH (09:00)
[2020-08-26] MEDS ORDERED: PARoxetine 10 MG TAB PO SCH (09:00)
--- NOTE | 2020-08-26 12:06 | P.CONS ---
History of Present Illness - Reason for Consult Consult date: 08/26/20 medical management Requesting physician: Luis M Walker - History of Present Illness HISTORY OF PRESENT ILLNESS This is a 74-year-old female patient of Dr. Corrie Dawson with past medical history of hypertension, hyperlipidemia, skin cancer, SVT, hypothyroidis m, degenerative disc disease of the neck status post steroid injections done by Dr. Tang, generalized osteoarthritis and possible rheumatoid arthritis. Patient has not been under the care of a conveyor tender. Patient has been brought in the hospital the care of Dr. Walker status post right total hip arthroplasty, direct anterior approach. Patient states her pain is fairly well controlled today. She is anticipating discharge today. She denies having any nausea or vomiting. No lightheadedness or dizziness. She has worked with physical therapy. Discharge plan is home with [facility]. Medication reconciliation has been completed. Patient to have follow-up with Dr. Dawson in the outpatient setting. REVIEW OF SYSTEMS Constitutional: No fever, no chills, no night sweats. No weight change. No weakness, fatigue or lethargy. No daytime sleepiness. EENT: No headache. No blurred vision or double vision, no loss of vision. No loss of Hearing, no ringing in the ears, no dizziness. No nasal drainage or congestion. No epistaxis. No sore throat. Lungs: No shortness of breath, cough, no sputum production. No wheezing. Cardiovascular: No chest pain, no lower extremity edema. No palpitations. No paroxysmal nocturnal dyspnea. No orthopnea. No lightheadedness or dizziness. No syncopal episodes. Abdominal: No abdominal pain. No nausea, vomiting. No diarrhea. No constipation. No bloody or tarry stools.. No loss of appetite. Genitourinary: No dysuria, increased frequency, urgency. No urinary retention. Musculoskeletal: No myalgias. No muscle weakness, no gait dysfunction, no frequent falls. No back pain. No neck pain. Expected right hip pain. Integumentary: No wounds, no lesions. No rash or pruritus. No unusual bruising . No change in hair or nails. Neurologic: No aphasia. No facial droop. No change in mentation. No head injury. No headache. No paralysis. No paresthesia. Psychiatric: No depression. No anxiety. No mood swings. Endocrine: No abnormal blood sugars. No weight change. No excessive sweating or thirst. No cold intolerance. SOCIAL HISTORY Patient is a lifelong nonsmoker. No alcohol abuse. 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 FAMILY HISTORY Mother at age 88 from a massive CVA with history of TIAs. Father from a broken heart syndrome. Patient has one sister with no major medical problems. She does not have any brothers. Patient has 2 children and one has passed from ovarian cancer and one daughter has no major medical problems. PHYSICAL EXAMINATION Gen: This is a 74-year-old female. She is sitting up in a chair and appears comfortable and in no acute distress. HEENT: Head is atraumatic, normocephalic. Pupils equal, round. Sclerae is anicteric. NECK: Supple. No JVD. No lymphadenopathy. No thyromegaly. LUNGS: Clear to auscultation. No wheezes or rhonchi. No intercostal retractions. HEART: Regular rate and rhythm. No murmur. ABDOMEN: Soft. Bowel sounds are present. No masses. No tenderness. EXTREMITIES: No pedal edema. No calf tenderness. Small dressing in place to the right hip with no breakthrough drainage or bleeding. No significant ecchymosis or edema. NEUROLOGICAL: Patient is awake, alert and oriented x3. Cranial nerves 2 through 12 are grossly intact. ASSESSMENT AND PLAN 1. Osteoarthritis status post right total hip arthroplasty, direct anterior approach. Continue current management per orthopedics. Aspirin for DVT prophylaxis, [place] for pain. Incentive spirometry to reduce incidence of atelectasis and hospital-acquired pneumonia. Continue PT and OT. Home care has been arranged. 2. Hypertension. Continue losartan 25 mg daily, Lopressor 25 mg at bedtime. 3. Hyperlipidemia, not currently on statin. 4. History of episode of SVT, stable. 5. Degenerative disc disease of the cervical spine status post third injections, stable. 6. Possible rheumatoid arthritis. Recommend patient follow with conveyor tender. 7. Hypothyroidism. Continue levothyroxine 112 g daily. 8. Recurrent depression. Continue Paxil 10 mg daily. Discharge plan: home today with [facility]. Impression and plan of care have been directed as dictated by the signing physician. Gloria Dudley nurse practitioner acting as scribe for signing physician. Past Medical History Past Medical History: Cancer, GERD/Reflux, Hyperlipidemia, Hypertension, Osteoarthritis (OA), Skin Disorder, Supraventricular Tachycardia (SVT), Thyroid Disorder Additional Past Medical History / Comment(s): Basal cell skin cancer on nose. F eet collapsed. DDD neck, hx steroid inj. Psoriasis at ankles, mild. Varicose veins; edema in BLE late in day. Episode of SVT post-op x1. History of Any Multi-Drug Resistant Organisms: None Reported Past Surgical History: Joint Replacement, Orthopedic Surgery, Tonsillectomy Additional Past Surgical History / Comment(s): Bilat Total Knee. ORIF Rt Shoulder. Squamous skin cell removal from nose Past Anesthesia/Blood Transfusion Reactions: No Reported Reaction Additional Past Anesthesia/Blood Transfusion Reaction / Comm: NO PRIOR GENERAL ANESTHESIA Past Psychological History: Anxiety, Depression Smoking Status: Never smoker Past Alcohol Use History: None Reported Additional Past Alcohol Use History / Comment(s): Patient is a lifelong nonsmoker, no hx alcohol use or abuse Past Drug Use History: Marijuana Additional Drug Use History / Comment(s): uses marijuana butter daily occ for foot pain - Past Family History Daughter(s) Family Medical History: Cancer Additional Family Medical History / Comment(s): OVARIAN CANCER, 2013 Mother Additional Family Medical History / Comment(s): Patient's mother at age 89. She had multiple TIAs. Patient's father at age 89. He had ongoing probl ems with heart disease. Patient has 1 sister that is healthy. Patient has one daughter who has been fighting ovarian cancer for the past 6 years. And she has a second daughter that is healthy. Medications and Allergies Home Medications Medication Instructions Recorded Confirmed Type Levothyroxine Sodium [Synthroid] 112 mcg PO DAILY 03/18/14 08/19/20 History PARoxetine [Paxil] 10 mg PO DAILY 03/18/14 08/19/20 History [place] 1 tab PO DAILY 12/13/16 08/19/20 History Ascorbic Acid [Vitamin C] 2,000 mg PO DAILY 12/13/16 08/19/20 History Calcium Carbonate/Vitamin D3 1 tab PO BID 12/13/16 08/19/20 History [Calcium 500-Vit D3 600 Tablet] Cholecalciferol [Vitamin D3 (25 2,000 unit PO DAILY 12/13/16 08/19/20 History Mcg = 1000 Iu)] Lecithin, Soy [Lecithin] 800 mg PO BID 12/13/16 08/19/20 History Metoprolol Tartrate [Lopressor] 25 mg PO HS 12/13/16 08/19/20 History [place]-3 Fatty Acids/Fish Oil [Fish 4 cap PO BID 12/13/16 08/19/20 History Oil 1,000 mg Softgel] Vitamin B Complex 2 cap PO BID 12/13/16 08/19/20 History Zinc 100 mg PO DAILY 12/13/16 08/19/20 History Acetaminophen [Tylenol] 500 - 1,000 mg PO Q4-6H PRN 12/15/16 08/19/20 History Multivitamins, Thera [Multivitamin 1 tab PO TID 12/15/16 08/19/20 History (formulary)] Famotidine [Pepcid AC] 10 mg PO BID 08/19/20 08/19/20 History HYDROcodone/APAP 5-325MG [[place] 1 tab PO Q6HR PRN 08/19/20 08/19/20 History 5-325] Losartan [Cozaar] 25 mg PO DAILY 08/19/20 08/19/20 History Aspirin 325 mg PO BID #60 tab 08/26/20 Rx HYDROcodone/APAP 5-325MG [[place] 1 - 2 tab PO Q6HR PRN #48 tab 08/26/20 Rx 5-325] Meloxicam [Mobic] 7.5 mg PO DAILY tab 08/26/20 Rx Sennosides [Senokot] 2 tab PO DAILY PRN #60 tablet 08/26/20 Rx Allergies Allergy/AdvReac Type Severity Reaction Status Date / Time Penicillins Allergy Rash/Hives Verified 08/25/20 08:39 morphine AdvReac Severe Itching Verified 08/25/20 08:39 [id number]-[id number]-[id number] Reductase AdvReac muscle pain Verified 08/25/20 08:39 Inhibitor Physical Exam Vitals: Vital Signs Temp Pulse Pulse Resp BP Pulse Ox 08/26/20 07:00 98.2 F 60 16 97/53 94 L 08/26/20 04:00 18 08/26/20 02:05 98.0 F 62 107/49 93 L 08/25/20 19:08 97.6 F 68 92/54 95 08/25/20 15:00 98.1 F 70 18 110/64 95 08/25/20 13:00 70 14 97/52 92 L 08/25/20 12:30 74 16 99/56 91 L 08/25/20 12:00 70 18 118/58 92 L 08/25/20 11:45 74 16 124/56 97 08/25/20 11:30 74 16 119/56 94 L 08/25/20 11:15 64 16 129/58 96 08/25/20 11:00 71 16 130/56 96 08/25/20 10:45 69 16 115/57 98 08/25/20 10:36 97.1 F L 74 15 113/55 100 08/25/20 08:52 97 F L 85 16 151/79 96 Intake and Output 08/25/20 08/26/20 08/26/20 22:59 06:59 14:59 Other: Voiding Method Urinal # Voids 1 1 Results CBC & Chem 7: 08/26/20 06:21 Labs: Abnormal Lab Results - Last 24 Hours (Table) 08/26/20 Range/Units 06:21 RBC 3.36 L (3.80-5.40) m/uL Hgb 10.7 L D (11.4-16.0) gm/dL Hct 33.5 L (34.0-46.0) %
== END 2020-08-26 11:42 | disposition home health service (06) ==
LOC: OR 08:17 → 4SSUR 10:36 → OR 08-26 11:42
PROVIDERS: ATTEND Orthopaedic Surgery
DX: M16.11 Unilateral primary osteoarthritis, right hip (principal); M25.751 Osteophyte, right hip; I10 Essential (primary) hypertension; E03.9 Hypothyroidism, unspecified; R26.81 Unsteadiness on feet; E78.5 Hyperlipidemia, unspecified; Z97.3 Presence of spectacles and contact lenses; F32.9 Major depressive disorder, single episode, unspecified; R45.0 Nervousness; F41.9 Anxiety disorder, unspecified; K30 Functional dyspepsia; R60.0 Localized edema; Z98.890 Other specified postprocedural states; Z96.653 Presence of artificial knee joint, bilateral; Z79.891 Long term (current) use of opiate analgesic; K21.9 Gastro-esophageal reflux disease without esophagitis; I47.1 Supraventricular tachycardia; Z85.828 Personal history of other malignant neoplasm of skin; M50.30 Other cervical disc degeneration, unspecified cervical region; L40.8 Other psoriasis; I83.90 Asymptomatic varicose veins of unspecified lower extremity; Z82.61 Family history of arthritis; Z80.41 Family history of malignant neoplasm of ovary; Z79.82 Long term (current) use of aspirin; Z79.1 Long term (current) use of non-steroidal anti-inflammatories (NSAID); Z79.890 Hormone replacement therapy; Z79.899 Other long term (current) drug therapy; Z88.5 Allergy status to narcotic agent; Z88.0 Allergy status to penicillin; Z88.8 Allergy status to other drugs, medicaments and biological substances
CPT/HCPCS: 97161; 97165; 86891; 85025; 88300; 73501; 27130; C1776; J0171; J1100; J0690 ×3; J2405; J1885; J2795; J0735; J1170; 86850; 86900; 86901

== ENCOUNTER 2020-09-03 20:12 | Emergency (ER) | payer MEDICARE ==
[2020-09-03 20:17] VITALS: RESP 18
[2020-09-03 21:48] LABS: Basophils # (A) 0.1 k/uL (0-0.2); Basophils % (A) 0 %; Eosinophils # (A) 0.1 k/uL (0-0.7); Eosinophils % (A) 1 %; HCT 37.9 % (34.0-46.0); HGB 12.2 gm/dL (11.4-16.0); Lymphocytes # (A) 0.8 k/uL (1.0-4.8); Lymphocytes % (A) 6 %; MCHC 32.2 g/dL (31.0-37.0); MCV 96.2 fL (80.0-100.0); Mean Platelet Volume 6.9; Monocytes # (A) 0.7 k/uL (0-1.0); Monocytes % (A) 6 %; Neutrophils # (A) 11.2 k/uL (1.3-7.7); Neutrophils % (A) 86 %; RBC 3.93 m/uL (3.80-5.40); RDW 13.3 % (11.5-15.5); WBC 13.1 k/uL (3.8-10.6)
[2020-09-03 21:56] LABS: Appearance,Urine Cloudy (Clear); Bacteria,Urine Rare /hpf; Bilirubin,Urine Negative (Negative); Blood,Urine Trace (Negative); Color,Urine Yellow; Glucose,Urine (UA) Negative (Negative); Hyaline Casts,Urine 1 /lpf (0-2); Ketones,Urine Negative (Negative); Leukocyte Esterase,Urine Large (Negative); Mucus,Urine Rare /hpf; Nitrite,Urine Positive (Negative); PH, Urine 5.5 (5.0-8.0); Protein,Urine Trace (Negative); RBC,Urine 21 /hpf (0-5); Specific Gravity,Urine 1.023 (1.001-1.035); Squamous Epithelial Cell,Urine 1 /hpf (0-4); Urobilinogen,Urine <2.0 mg/dL (<2.0); WBC,Urine 113 /hpf (0-5)
--- NOTE | 2020-09-03 21:57 | XR ---
EXAMINATION TYPE: XR chest 1V DATE OF EXAM: 09/03/2020 COMPARISON: 05/31/2017 HISTORY: Lung nodule TECHNIQUE: Single view FINDINGS: There is no heart failure nor confluent pneumonic infiltrate. Costophrenic angles are clear . Thoracic aorta is atheromatous. There are no hilar masses. Bony thorax appears intact. IMPRESSION: No active cardiopulmonary disease. No change. No evidence of a pulmonary mass.
[2020-09-03 22:06] LABS: ALT 28 U/L (4-34); AST 35 U/L (14-36); African American GFR (CKD) >90 (>60 ml/min/1.73 sqM); Albumin 3.7 g/dL (3.5-5.0); Alkaline Phosphatase 109 U/L (38-126); Anion Gap 7 mmol/L; Blood Urea Nitrogen 15 mg/dL (7-17); Calcium 9.2 mg/dL (8.4-10.2); Carbon Dioxide 24 mmol/L (22-30); Chloride 100 mmol/L (98-107); Glucose 143 mg/dL (74-99); Non-African American GFR(CKD) 89 (>60 ml/min/1.73 sqM); Potassium 3.9 mmol/L (3.5-5.1); Sodium 131 mmol/L (137-145); Total Bilirubin 0.6 mg/dL (0.2-1.3); Total Protein 6.8 g/dL (6.3-8.2)
[2020-09-03 22:33] LABS: Platelet Count 396 k/uL (150-450)
[2020-09-03] MEDS ORDERED: cefTRIAXone 1,000 MG VIAL (IM USE) IM STA ×2 (23:08)
--- NOTE | 2020-09-03 23:08 | ED ---
General Adult HPI - General Chief complaint: Recheck/Abnormal Lab/Rx Stated complaint: +covid exposure, weakness Time Seen by Provider: 09/03/20 20:24 Source: patient, RN notes reviewed, old records reviewed Mode of arrival: ambulatory Limitations: no limitations - History of Present Illness Initial comments: 74-year-old female patient presents to ED for evaluation. Patient is status post right hip replacement on 08/25. She presented to ED for evaluation. Patient reports that he has had some potential Covid exposures over the last couple of days. She reports that yesterday she is feeling generalized aches that she had a low-grade fever. She denies any chest pain shortness of breath pain in the lower extremities. She reports that she is feeling much better today. She reports that shows has a little mild cough that is unchanged today. Denies any shortness of breath. Systemic: Pt denies fatigue, rash. Pt denies weakness, night sweats, weight loss. Neuro: Pt denies headache, visual disturbances, syncope or pre-syncope. HEENT: Pt denies ocular discharge or irritation, otalgia, rhinorrhea, pharyngitis or notable lymphadenopathy. Cardiopulmonary: Pt denies chest pain, SOB, heart palpitations, dyspnea on exertion. Abdominal/GI: Pt denies abdominal pain, n/v/d. : Pt denies dysuria, burning w/ urination, frequency/urgency. Denies new onset urinary or bowel incontinence. MSK: Pt denies myalgia, loss of strength or function in extremities. Neuro: Pt denies new onset weakness, paresthesias. - Related Data Home Medications Medication Instructions Recorded Confirmed Levothyroxine Sodium [Synthroid] 112 mcg PO DAILY 03/18/14 08/19/20 PARoxetine [Paxil] 10 mg PO DAILY 03/18/14 08/19/20 [place] 1 tab PO DAILY 12/13/16 08/19/20 Ascorbic Acid [Vitamin C] 2,000 mg PO DAILY 12/13/16 08/19/20 Calcium Carbonate/Vitamin D3 1 tab PO BID 12/13/16 08/19/20 [Calcium 500-Vit D3 600 Tablet] Cholecalciferol [Vitamin D3 (25 2,000 unit PO DAILY 12/13/16 08/19/20 Mcg = 1000 Iu)] Lecithin, Soy [Lecithin] 800 mg PO BID 12/13/16 08/19/20 Metoprolol Tartrate [Lopressor] 25 mg PO HS 12/13/16 08/19/20 [place]-3 Fatty Acids/Fish Oil [Fish 4 cap PO BID 12/13/16 08/19/20 Oil 1,000 mg Softgel] Vitamin B Complex 2 cap PO BID 12/13/16 08/19/20 Zinc 100 mg PO DAILY 12/13/16 08/19/20 Acetaminophen [Tylenol] 500 - 1,000 mg PO Q4-6H PRN 12/15/16 08/19/20 Multivitamins, Thera [Multivitamin 1 tab PO TID 12/15/16 08/19/20 (formulary)] Famotidine [Pepcid AC] 10 mg PO BID 08/19/20 08/19/20 HYDROcodone/APAP 5-325MG [[place] 1 tab PO Q6HR PRN 08/19/20 08/19/20 5-325] Losartan [Cozaar] 25 mg PO DAILY 08/19/20 08/19/20 Previous Rx's Medication Instructions Recorded Aspirin 325 mg PO BID #60 tab 08/26/20 HYDROcodone/APAP 5-325MG [[place] 1 - 2 tab PO Q6HR PRN #48 tab 08/26/20 5-325] Meloxicam [Mobic] 7.5 mg PO DAILY tab 08/26/20 Sennosides [Senokot] 2 tab PO DAILY PRN #60 tablet 08/26/20 Nitrofurantoin Monohyd/M-Cryst 100 mg PO Q12HR #14 cap 09/03/20 [Macrobid] Allergies Allergy/AdvReac Type Severity Reaction Status Date / Time Penicillins Allergy Rash/Hives Verified 09/03/20 20:17 morphine AdvReac Severe Itching Verified 09/03/20 20:17 Tfutazo-Hat-Kez Reductase AdvReac muscle pain Verified 09/03/20 20:17 Inhibitor Review of Systems ROS Statement: Those systems with pertinent positive or pertinent negative responses have been documented in the HPI. ROS Other: All systems not noted in ROS Statement are negative. 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 She denies any history of alcohol use or abuse. There is no medical marijuana or marijuana use. Past Drug Use History: Marijuana - Past Family History Daughter(s) Family Medical History: Cancer Additional Family Medical History / Comment(s): OVARIAN CANCER, 2013 Mother Additional Family Medical History / Comment(s): Patient's mother at age 89. She had multiple TIAs. Patient's father at age 89. He had ongoing problems with heart disease. Patient has 1 sister that is healthy. Patient has one daughter who has been fighting ovarian cancer for the past 6 years. And she has a second daughter that is healthy. General Exam - General Exam Comments Initial Comments: Constitutional: NAD, AOX3, Pt has pleasant affect. HEENT: NC/AT, trachea midline, neck supple, no lymphadenopathy. Posterior pharynx non erythematous, without exudates. External ears appear normal, without discharge. Mucous membranes moist. Eyes PERRLA, EOM intact. There is no scleral icterus. No pallor noted. Cardiopulmonary: RRR, no murmurs, rubs or gallops, no JVD noted. Lungs CTAB in anterior and posterior vo. No peripheral edema. Abdominal exam: Abdomen soft and non-distended. Abdomen non-tender to palpation in all 4 quadrants. Bowel sounds active in LLQ. No hepatosplenomegaly. No ec chymosis Neuro: CN II-XII grossly intact. No nuchal rigidity. No raccon eyes, no figueroa sign, no hemotympanum. No cervical spinal tenderness. MSK: No posterior calf tenderness bilaterally, homans sign negative bilaterally. Posterior tibialis and radial pulse +2 bilaterally. Sensation intact in upper and lower extremities. Full active ROM in upper and lower extremities, 5/5 stregnth. Incision sites right anterior hip are nonerythematous clean and dry. Limitations: no limitations Course Vital Signs 09/03/20 09/03/20 20:12 20:46 Temperature 98.1 F Pulse Rate 91 Respiratory 18 18 Rate Blood Pressure 150/84 O2 Sat by Pulse 96 Oximetry Medical Decision Making - Medical Decision Making 74-year-old female patient presents to ED for evaluation. Patient is status post right hip replacement on 08/25. She presented to ED for evaluation. Patient reports that he has had some potential Covid exposures over the last couple of days. She reports that yesterday she is feeling generalized aches that she had a low-grade fever. She denies any chest pain shortness of breath pain in the lower extremities. She reports that she is feeling much better today. She reports that shows has a little mild cough that is unchanged today. Denies any shortness of breath. Patient vital signs are stable, afebrile. Phy sical exam negative for acute pathology. Laboratory investigations. 3. Leukocytosis, nitrite positive urine. Urinary tract infection. These are negative for acute process. Patient was tested for coronavirus. Patient will be administered 1 g of Rocephin in the emergency department. Patient will be discharged with Macrobid. We'll follow up with primary care provider tomorrow. Return precautions were discussed and patient verbalized understanding. Case discussed with Dr. Jimenez. - Lab Data Result diagrams: 09/03/20 21:23 09/03/20 21:23 Lab Results 09/03/20 09/03/20 09/03/20 Range/Units 21:18 21:23 21:23 WBC 13.1 H (3.8-10.6) k/uL RBC 3.93 (3.80-5.40) m/uL Hgb 12.2 (11.4-16.0) gm/dL Hct 37.9 (34.0-46.0) % MCV 96.2 (80.0-100.0) fL MCH 31.0 (25.0-35.0) pg MCHC 32.2 (31.0-37.0) g/dL RDW 13.3 (11.5-15.5) % Plt Count 396 D (150-450) k/uL Neutrophils % 86 % Lymphocytes % 6 % Monocytes % 6 % Eosinophils % 1 % Basophils % 0 % Neutrophils # 11.2 H (1.3-7.7) k/uL Lymphocytes # 0.8 L (1.0-4.8) k/uL Monocytes # 0.7 (0-1.0) k/uL Eosinophils # 0.1 (0-0.7) k/uL Basophils # 0.1 (0-0.2) k/uL Sodium (137-145) mmol/L Potassium (3.5-5.1) mmol/L Chloride (98-107) mmol/L Carbon Dioxide (22-30) mmol/L Anion Gap mmol/L BUN (7-17) mg/dL Creatinine (0.52-1.04) mg/dL Est GFR (CKD-EPI)AfAm (>60 ml/min/1.73 sqM) Est GFR (CKD-EPI)NonAf (>60 ml/min/1.73 sqM) Glucose (74-99) mg/dL Plasma Lactic Acid Ike (0.7-2.0) mmol/L Calcium (8.4-10.2) mg/dL Total Bilirubin (0.2-1.3) mg/dL AST (14-36) U/L ALT (4-34) U/L Alkaline Phosphatase (38-126) U/L Total Protein (6.3-8.2) g/dL Albumin (3.5-5.0) g/dL Urine Color Yellow Urine Appearance Cloudy H (Clear) Urine pH 5.5 (5.0-8.0) Ur Specific [place] 1.023 (1.001-1.035) Urine Protein Trace H (Negative) Urine Glucose (UA) Negative (Negative) Urine Ketones Negative (Negative) Urine Blood Trace H (Negative) Urine Nitrite Positive H (Negative) Urine Bilirubin Negative (Negative) Urine Urobilinogen <2.0 (<2.0) mg/dL Ur Leukocyte Esterase Large H (Negative) Urine RBC 21 H (0-5) /hpf Urine WBC 113 H (0-5) /hpf Ur Squamous Epith Cells 1 (0-4) /hpf Urine Bacteria Rare H (None) /hpf Hyaline Casts 1 (0-2) /lpf Urine Mucus Rare H (None) /hpf Influenza Type A RNA Not Detected (Not Detectd) Influenza Type B (PCR) Not Detected (Not Detectd) 09/03/20 09/03/20 Range/Units 21:23 21:23 WBC (3.8-10.6) k/uL RBC (3.80-5.40) m/uL Hgb (11.4-16.0) gm/dL Hct (34.0-46.0) % MCV (80.0-100.0) fL MCH (25.0-35.0) pg MCHC (31.0-37.0) g/dL RDW (11.5-15.5) % Plt Count (150-450) k/uL Neutrophils % % Lymphocytes % % Monocytes % % Eosinophils % % Basophils % % Neutrophils # (1.3-7.7) k/uL Lymphocytes # (1.0-4.8) k/uL Monocytes # (0-1.0) k/uL Eosinophils # (0-0.7) k/uL Basophils # (0-0.2) k/uL Sodium 131 L (137-145) mmol/L Potassium 3.9 (3.5-5.1) mmol/L Chloride 100 (98-107) mmol/L Carbon Dioxide 24 (22-30) mmol/L Anion Gap 7 mmol/L BUN 15 (7-17) mg/dL Creatinine 0.59 (0.52-1.04) mg/dL Est GFR (CKD-EPI)AfAm >90 (>60 ml/min/1.73 sqM) Est GFR (CKD-EPI)NonAf 89 (>60 ml/min/1.73 sqM) Glucose 143 H (74-99) mg/dL Plasma Lactic Acid Ike 0.9 (0.7-2.0) mmol/L Calcium 9.2 (8.4-10.2) mg/dL Total Bilirubin 0.6 (0.2-1.3) mg/dL AST 35 (14-36) U/L ALT 28 (4-34) U/L Alkaline Phosphatase 109 (38-126) U/L Total Protein 6.8 (6.3-8.2) g/dL Albumin 3.7 (3.5-5.0) g/dL Urine Color Urine Appearance (Clear) Urine pH (5.0-8.0) Ur Specific [place] (1.001-1.035) Urine Protein (Negative) Urine Glucose (UA) (Negative) Urine Ketones (Negative) Urine Blood (Negative) Urine Nitrite (Negative) Urine Bilirubin (Negative) Urine Urobilinogen (<2.0) mg/dL Ur Leukocyte Esterase (Negative) Urine RBC (0-5) /hpf Urine WBC (0-5) /hpf Ur Squamous Epith Cells (0-4) /hpf Urine Bacteria (None) /hpf Hyaline Casts (0-2) /lpf Urine Mucus (None) /hpf Influenza Type A RNA (Not Detectd) Influenza Type B (PCR) (Not Detectd) Disposition Clinical Impression: UTI (urinary tract infection) Disposition: HOME SELF-CARE Condition: Stable Instructions (If sedation given, give patient instructions): Urinary Tract Infection in Women (ED) Additional Instructions: Take antibiotics as directed. Follow up with PCP tomorrow. Self quarentine until coronavirus results. Return to ED with any worsening symptoms. Prescriptions: Nitrofurantoin Monohyd/M-Cryst [Macrobid] 100 mg PO Q12HR #14 cap Is patient prescribed a controlled substance at d/c from ED?: No Referrals: Corrie Dawson MD [Primary Care Provider] - 1-2 days
[2020-09-03 23:32] VITALS: BP 145/76; PULSE 71; TEMP 97.9
== END 2020-09-03 23:25 | disposition home or self-care (01) ==
LOC: EC 20:12
DX: N39.0 Urinary tract infection, site not specified (principal); D72.829 Elevated white blood cell count, unspecified; R50.9 Fever, unspecified; R52 Pain, unspecified; R05 Cough; E07.9 Disorder of thyroid, unspecified; F32.9 Major depressive disorder, single episode, unspecified; K21.9 Gastro-esophageal reflux disease without esophagitis; I10 Essential (primary) hypertension; Z79.890 Hormone replacement therapy; Z79.899 Other long term (current) drug therapy; Z88.5 Allergy status to narcotic agent; Z88.0 Allergy status to penicillin; Z88.8 Allergy status to other drugs, medicaments and biological substances; Z96.641 Presence of right artificial hip joint; Z85.828 Personal history of other malignant neoplasm of skin; Z20.828 Contact with and (suspected) exposure to other viral communicable diseases
CPT/HCPCS: 36415; 80053; 83605; 85025; 81001; 87086; 87077; 87186; 87502; 71045; 99285; 96372; U0003; J0696

== ENCOUNTER 2022-07-28 09:29 | Day surgery (SDC) | payer MEDICARE ==
[2022-07-26 11:14] VITALS: BMI 19.1
[~2022-07-28 09:29] MED LIST changes: -ACETAMINOPHEN TAB 500 MG TAB PO ONE; -DEXAMETHASONE SOD PHOSPHATE 10 MG/ML 1 ML VIAL IV ONE; -GABAPENTIN 300 MG CAP PO ONE; +LACTATED RINGERS 1,000 ML IV SCH; -LIDOCAINE 1% (10MG/ML) FOR IV START INTRADERMA PRN; -MELOXICAM 7.5 MG TAB PO ONE; -MIDAZOLAM 2 MG/2 ML VIAL IV PRN; -ONDANSETRON 4 MG/2 ML VIAL IVP ONE; -TRANEXAMIC ACID 1,000 MG in SODIUM CHLORIDE 0.9% 100 ML IVPB ONE
[2022-07-28 09:54] VITALS: TEMP 99
[2022-07-28] MEDS ORDERED: LIDOCAINE 1% (10MG/ML) FOR IV START INTRADERMA ONE (10:01)
[2022-07-28] MEDS ORDERED: PROPOFOL 10 MG/ML 20 ML VIAL IV ONE (10:30)
[2022-07-28] MEDS ORDERED: LIDOCAINE 2% INJ 20 MG/ML (2 ML VIAL) ONE (10:30)
--- NOTE | 2022-07-28 10:31 | P.GSHP ---
History of Present Illness H&P Date: 07/28/22 Chief Complaint: GI bleed Is a 68-year-old female who presents today for EGD. Patient had previous history of upper GI bleed. She is currently on arthritis medications Past Medical History Past Medical History: GERD/Reflux, Hypertension, Osteoarthritis (OA), Thyroid Disorder Additional Past Medical History / Comment(s): squamous cell skin cancer., pt was hospitalized 06/22 to 06/27/22 for bleeding in stomach. History of Any Multi-Drug Resistant Organisms: None Reported Past Surgical History: Joint Replacement, Orthopedic Surgery, Tonsillectomy Additional Past Surgical History / Comment(s): squamous skin cancer., [place] total knee surgeries., shoulder surgery., R total hip. colonoscopy, EGD. Past Anesthesia/Blood Transfusion Reactions: No Reported Reaction Additional Past Anesthesia/Blood Transfusion Reaction / Comment(s): . Past Psychological History: Depression Smoking Status: Never smoker Past Alcohol Use History: None Reported Additional Past Alcohol Use History / Comment(s): . Additional Drug Use History / Comment(s): current oral cbd oil for pain - Past Family History Daughter(s) Family Medical History: Cancer Additional Family Medical History / Comment(s): OVARIAN CANCER, 2013 Mother Additional Family Medical History / Comment(s): Patient's mother at age 89. She had multiple TIAs. Patient's father at age 89. He had ongoing problems with heart disease. Patient has 1 sister that is healthy. Patient has one daughter who has been fighting ovarian cancer for the past 6 years. And she has a second daughter that is healthy. Medications and Allergies Home Medications Medication Instructions Recorded Confirmed Type Levothyroxine Sodium [Synthroid] 112 mcg PO DAILY 03/18/14 07/28/22 History PARoxetine [Paxil] 30 mg PO DAILY 03/18/14 07/28/22 History Famotidine [Pepcid] 20 mg PO DAILY 06/22/22 07/28/22 History Losartan [Cozaar] 50 mg PO DAILY 06/22/22 07/28/22 History Metoprolol Tartrate [Lopressor] 50 mg PO BID 06/22/22 07/28/22 History amLODIPine [Norvasc] 10 mg PO DAILY 06/22/22 07/28/22 History Pantoprazole Sodium [Protonix] 40 mg PO BID #600 tab 06/27/22 07/28/22 Rx Cannabidiol (Cbd) [Epidiolex] 1 dose PO DIRECTED PRN 07/26/22 07/28/22 History Iron Supplement 2 dose PO DAILY 07/26/22 07/28/22 History Multivit with Calcium,Iron,Min 1 each PO DAILY 07/26/22 07/28/22 History [Women's Multivitamin] Allergies Allergy/AdvReac Type Severity Reaction Status Date / Time Penicillins Allergy Rash/Hives Verified 07/28/22 09:51 as an adult morphine AdvReac Severe Rash/Hives, Verified 07/28/22 09:51 itching [id number] Reductase AdvReac muscle pain Verified 07/28/22 09:51 Inhibitor [[id number]-[id number]-Pnk Reductase Inhibitor] Surgical - Exam Vital Signs Temp Pulse Resp BP Pulse Ox 99.0 F 67 20 146/80 96 07/28/22 09:53 07/28/22 09:53 07/28/22 09:53 07/28/22 09:53 07/28/22 09:53 - General well developed, well nourished, no distress - Eyes PERRL - ENT normal pinna - Neck no masses - Respiratory normal expansion - Cardiovascular Rhythm: regular - Abdomen Abdomen: soft, non tender Assessment and Plan Assessment: History of upper GI bleed. We'll perform EGD.
--- NOTE | 2022-07-28 10:41 | P.OP ---
Date of Procedure: 07/28/22 Preoperative Diagnosis: Upper GI bleed Postoperative Diagnosis: Gastritis Small hiatal hernia Esophagitis Procedure(s) Performed: EGD Anesthesia: MAC Surgeon: Malcolm Marroquin Pathology: other (Antrum, esophagus) Condition: stable Disposition: PACU Description of Procedure: The patient's placed on the endoscopy table in the lateral position. She received IV sedation. The gastroscope placed oropharynx passed in the esophagus and into the stomach. Scope was then placed through the pylorus. The first and second portion of the duodenum appeared normal. Scope was then brought back the antrum this was mildly inflamed. A biopsies performed. The scope was then retroflexed and the remainder of the stomach appeared normal. There was a small sliding hiatal hernia. The GE junction was at 38 cm. The distal esophagus appeared mildly inflamed. The proximal esophagus appeared normal. Scope was th en withdrawn for patient.
[2022-07-28 10:50] VITALS: RESP 16
[2022-07-28 11:01] VITALS: BP 113/62; PULSE 66
== END 2022-07-28 11:20 | disposition home or self-care (01) ==
LOC: ORWHC2ENDO 09:29
PROVIDERS: ATTEND Surgery
DX: K29.70 Gastritis, unspecified, without bleeding (principal); K44.9 Diaphragmatic hernia without obstruction or gangrene; K21.00 Gastro-esophageal reflux disease with esophagitis, without bleeding; I10 Essential (primary) hypertension; M19.90 Unspecified osteoarthritis, unspecified site; E07.9 Disorder of thyroid, unspecified; F12.90 Cannabis use, unspecified, uncomplicated; Z85.828 Personal history of other malignant neoplasm of skin; Z90.89 Acquired absence of other organs; Z98.890 Other specified postprocedural states; Z80.41 Family history of malignant neoplasm of ovary; Z79.890 Hormone replacement therapy; Z79.1 Long term (current) use of non-steroidal anti-inflammatories (NSAID); Z88.0 Allergy status to penicillin
CPT/HCPCS: 43239; J2704; J2001; 88305; 88342

== ENCOUNTER 2023-12-20 14:40 | Inpatient (IN) | payer MEDICARE ==
[2023-12-20] MEDS: SODIUM CHLORIDE 0.9% 1,000 ML IV STA (16:06)
[2023-12-20] MEDS: ONDANSETRON 4 MG/2 ML VIAL IVP STA (16:07)
[2023-12-20] MEDS: HYDROmorphone 0.5 MG/0.5 ML SYRINGE IVP STA (16:12)
--- NOTE | 2023-12-20 16:34 | ED ---
Abdominal Pain HPI - General Chief Complaint: Abdominal Pain Stated Complaint: Nausea Time Seen by Provider: 12/20/23 15:48 Source: patient, RN notes reviewed, old records reviewed Mode of arrival: wheelchair Limitations: no limitations - History of Present Illness Initial Comments: This is a 78-year-old female to the ER today. This patient presents today for evaluation regards to abdominal pain. Persistent nausea vomiting abdominal pain with known history of abdominal hernia inguinal hernia. Patient is having pain there and generalized abdominal pain. Presents the ER for evaluation abdominal pain and hernia. MD Complaint: abdominal pain, other -: days(s) Location: diffuse, epigastric, suprapubic Radiation: epigastric, suprapubic Severity: moderate Severity scale (1-10): 4 Quality: aching, sharp Consistency: intermittent Improves With: nothing Worsens With: nothing Associated Symptoms: nausea, vomiting Treatments Prior to Arrival: other (0) - Related Data Home Medications Medication Instructions Recorded Confirmed Levothyroxine Sodium [Synthroid] 112 mcg PO DAILY 03/18/14 12/21/23 Metoprolol Tartrate [Lopressor] 50 mg PO BID 06/22/22 12/21/23 Pantoprazole Sodium [Protonix] 40 mg PO DAILY 12/29/22 12/21/23 HYDROcodone/APAP 5-325MG [[place] 1 tab PO BID PRN 12/20/23 12/20/23 5-325] PARoxetine HCL 30 mg PO DAILY 12/20/23 12/21/23 Prednisolone Acetate/Pf See Taper LEFT EYE DIRECTED 12/20/23 12/21/23 [Prednisolone Acet 1% Eye Drop] prednisoLONE ACETATE 1% OPHTH 1 drop RIGHT EYE DAILY 12/20/23 12/21/23 [Pred Forte 1%] Previous Rx's Medication Instructions Recorded Apixaban [Eliquis] 5 mg PO BID #180 tab 12/22/23 HYDROcodone/APAP 5-325MG [[place] 1 tab PO Q6HR PRN 3 Days #12 tab 12/22/23 5-325] cefUROXime axetiL [Ceftin] 500 mg PO BID 7 Days #14 tab 12/22/23 metroNIDAZOLE [Flagyl] 500 mg PO TID 7 Days #21 tab 12/22/23 Allergies Allergy/AdvReac Type Severity Reaction Status Date / Time Penicillins Allergy Itching Verified 12/21/23 15:44 morphine AdvReac Severe Rash/Hives, Verified 12/21/23 15:44 itching Kdqbnez-[id number] Reductase AdvReac Due to Verified 12/21/23 15:44 Inhibitor Bleeding [Nvnfoss-Bld-Eix Reductase ulcers Inhibitor] Review of Systems ROS Statement: Those systems with pertinent positive or pertinent negative responses have been documented in the HPI. ROS Other: All systems not noted in ROS Statement are negative. Past Medical History Past Medical History: Cancer, GERD/Reflux, Hypertension, Osteoarthritis (OA), Thyroid Disorder Additional Past Medical History / Comment(s): squamous cell skin cancer., pt was hospitalized 06/22 to 06/27/22 for bleeding in stomach. History of Any Multi-Drug Resistant Organisms: None Reported Past Surgical History: Joint Replacement, Orthopedic Surgery, Tonsillectomy Additional Past Surgical History / Comment(s): squamous skin cancer off nose, [place] total knee surgeries., shoulder surgery., R total hip. colonoscopy, EGD. Past Anesthesia/Blood Transfusion Reactions: Previous Problems w/ Anesthesia Additional Past Anesthesia/Blood Transfusion Reaction / Comment(s): stated "b/p was very low and irregular w/ spinal for total rt hip 08-25-20.". no hx blood transfusion Past Psychological History: Depression Smoking Status: Never smoker Past Alcohol Use History: None Reported Past Drug Use History: Marijuana - Past Family History Daughter(s) Family Medical History: Cancer Additional Family Medical History / Comment(s): OVARIAN CANCER, 2013 General Exam Limitations: no limitations General appearance: alert, in no apparent distress Head exam: Present: atraumatic, normocephalic, normal inspection Eye exam: Present: normal appearance, PERRL, EOMI. Absent: scleral icterus, conjunctival injection, periorbital swelling ENT exam: Present: normal exam, mucous membranes moist Neck exam: Present: normal inspection. Absent: tenderness, meningismus, lymphadenopathy Respiratory exam: Present: normal lung sounds bilaterally. Absent: respiratory distress, wheezes, rales, rhonchi, stridor Cardiovascular Exam: Present: regular rate, normal rhythm, normal heart sounds. Absent: systolic murmur, diastolic murmur, rubs, gallop, clicks GI/Abdominal exam: Present: soft, normal bowel sounds. Absent: distended, tenderness, guarding, rebound, rigid Extremities exam: Present: normal inspection, full ROM, normal capillary refill. Absent: tenderness, pedal edema, joint swelling, calf tenderness Back exam: Present: normal inspection Neurological exam: Present: alert, oriented X3, CN II-XII intact Psychiatric exam: Present: normal affect, normal mood Skin exam: Present: warm, dry, intact, normal color. Absent: rash Course Vital Signs 12/20/23 12/20/23 12/20/23 15:06 16:10 18:42 Temperature 98.4 F Pulse Rate 105 H 96 104 H Respiratory 18 18 18 Rate Blood Pressure 125/77 135/67 90/62 O2 Sat by Pulse 93 L 94 L 91 L Oximetry 12/20/23 12/21/23 12/21/23 21:18 03:22 04:28 Temperature Pulse Rate 84 65 68 Respiratory 16 16 16 Rate Blood Pressure 97/54 95/44 97/54 O2 Sat by Pulse 94 L 95 Oximetry 12/21/23 12/21/23 12/21/23 05:02 07:38 10:43 Temperature 98.2 F Pulse Rate 82 67 83 Respiratory 16 16 16 Rate Blood Pressure 106/63 92/59 106/63 O2 Sat by Pulse 94 L 92 L 95 Oximetry 12/21/23 13:29 Temperature Pulse Rate Respiratory Rate Blood Pressure 129/72 O2 Sat by Pulse Oximetry - Reevaluation(s) Reevaluation #1: 12/20/23 18:44 Medical record is reviewed Reevaluation #2: 12/20/23 18:44 Patient symptoms are improved Reevaluation #3: 12/20/23 18:44 Informed of results and questions answered Reevaluation #4: Was pt. sent in by a medical professional or institution (, PA, CABLEMAN, urgent care, hospital, or snf...) When possible be specific @ -no Did you speak to anyone other than the patient for history (EMS, parent, family, police, friend...)? What history was obtained from this source @ -no Did you review nursing and triage notes (agree or disagree)? Why? @ -agree Are old charts reviewed (outside hosp., previous admission, EMS record, old EKG, old radiological studies, urgent care reports/EKG's, snf records)? Report findings @ -yes Differential Diagnosis (chest pain, altered mental status, abdominal pain women, abdominal pain men, vaginal bleeding, weakness, fever, dyspnea, syncope, headache, dizziness, GI bleed, back pain, seizure, CVA, palpatations, mental h ealth, musculoskeletal)? @ -prior EKG interpreted by me (3pts min.). @ -yes X-rays interpreted by me (1pt min.). @ -no CT interpreted by me (1pt min.). @ -Yes positive for small bowel obstruction U/S interpreted by me (1pt. min.). @ -no What testing was considered but not performed or refused? (CT, X-rays, U/S, labs)? Why? @ -none What meds were considered but not given or refused? Why? @ -none Did you discuss the management of the patient with other professionals (professionals i.e. , PA, CABLEMAN, lab, RT, psych nurse, clinical social worker, money laundering investigator, teacher, property utilization officer, pillowcase cleaner)? Give summary @ -no Was smoking cessation discussed for >3mins.? @ -no Was critical care preformed (if so, how long)? @ -no Were there social determinants of health that impacted care today? How? (Homele ssness, low income, unemployed, alcoholism, drug addiction, transportation, low edu. Level, literacy, decrease access to med. care, residential, rehab)? @ -none Was there de-escalation of care discussed even if they declined (Discuss DNR or withdrawal of care, Hospice)? DNR status @ -no What co-morbidities impacted this encounter? (DM, HTN, Smoking, COPD, CAD, Cancer, CVA, ARF, Chemo, Hep., AIDS, mental health diagnosis, sleep apnea, morbid obesity)? @ -none Was patient admitted / discharged? Hospital course, mention meds given and route, prescriptions, significant lab abnormalities, going to OR and other pertinent info. @ - 78 female to the ER today. Patient is today for evaluation abdominal pain positive for small bowel obstruction positive for inguinal hernia patient will be admitted for surgical evaluation and consult Discharge Undiagnosed new problem with uncertain prognosis? @ -no Drug Therapy requiring intensive monitoring for toxicity (Heparin, Nitro, Insulin, Cardizem)? @ -no Were any procedures done? @ -no Diagnosis/symptom? @ -Hernia with small bowel obstruction Acute, or Chronic, or Acute on Chronic? @ -Acute Uncomplicated (without systemic symptoms) or Complicated (systemic symptoms)? @ -Complicated Side effects of treatment? @ -no Exacerbation, Progression, or Severe Exacerbation? @ -exacerbation Poses a threat to life or bodily function? How? (Chest pain, [place], [place], pneumonia, PE, COPD, DKA, ARF, appy, cholecystitis, CVA, Diverticulitis, Homicidal, Suicidal, threat to staff... and all critical care pts) @ -yes extremes of age Reevaluation #5: Differential Abdominal Pain Women: Appendicitis, Cholecystitis, diverticulosis, ischemic bowel, pancreatitis, hepatitis, UTI, gastroenteritis, AAA, incarcerated hernia, bowel obstruction, constipation, inflammatory bowel, hepatitis, peptic ulcer disease, splenic infarction, perforated viscus, vulvitis, ovarian torsion, PID, kidney stone, placenta abruption, this is not meant to be an all-inclusive list - Consultations Consultation #1: Spoke with [facility] to admit this patient Medical Decision Making - Medical Decision Making 78 female to the ER today. Patient is today for evaluation abdominal pain positive for small bowel obstruction positive for inguinal hernia patient will be admitted for surgical evaluation and consult - Lab Data Result diagrams: 12/21/23 08:18 12/21/23 08:18 Lab Results 12/20/23 12/20/23 12/20/23 Range/Units 16:14 16:14 16:14 WBC 6.6 (3.8-10.6) k/uL RBC 4.97 (3.80-5.40) m/uL Hgb 15.8 (11.4-16.0) gm/dL Hct 46.2 H (34.0-46.0) % MCV 92.9 (80.0-100.0) fL MCH 31.9 (25.0-35.0) pg MCHC 34.3 (31.0-37.0) g/dL RDW 12.9 (11.5-15.5) % Plt Count 221 (150-450) k/uL MPV 8.7 Neutrophils % (Manual) 94 % Band Neuts % (Manual) 3 % Lymphocytes % (Manual) 1 % Monocytes % (Manual) 2 % Neutrophils # (Manual) 6.40 (1.3-7.7) k/uL Lymphocytes # (Manual) 0.07 L (1.0-4.8) k/uL Monocytes # (Manual) 0.13 (0-1.0) k/uL Nucleated RBCs 0 (0-0) /100 WBC Manual Slide Review Performed Sodium 134 L (137-145) mmol/L Potassium 4.3 (3.5-5.1) mmol/L Chloride 99 (98-107) mmol/L Carbon Dioxide 25 (22-30) mmol/L Anion Gap 10 mmol/L BUN 30 H (7-17) mg/dL Creatinine 0.74 (0.52-1.04) mg/dL Est GFR (CKD-EPI)AfAm 89 (>60 ml/min/1.73 sqM) Est GFR (CKD-EPI)NonAf 77 (>60 ml/min/1.73 sqM) Glucose 200 H (74-99) mg/dL Lactic Ac Sepsis Rflx Plasma Lactic Acid Ike (0.7-2.0) mmol/L Calcium 10.0 (8.4-10.2) mg/dL Total Bilirubin 1.3 (0.2-1.3) mg/dL AST 45 H (14-36) U/L ALT 27 (4-34) U/L Alkaline Phosphatase 77 (38-126) U/L Total Protein 7.2 (6.3-8.2) g/dL Albumin 4.3 (3.5-5.0) g/dL Amylase 79 (30-110) U/L Lipase 86 (23-300) U/L Urine Color Yellow Urine Appearance Clear (Clear) Urine pH 5.5 (5.0-8.0) Ur Specific [place] 1.028 (1.001-1.035) Urine Protein Trace H (Negative) Urine Glucose (UA) Negative (Negative) Urine Ketones Trace H (Negative) Urine Blood Negative (Negative) Urine Nitrite Positive H (Negative) Urine Bilirubin Negative (Negative) Urine Urobilinogen <2.0 (<2.0) mg/dL Ur Leukocyte Esterase Negative (Negative) Urine RBC <1 (0-5) /hpf Urine WBC 1 (0-5) /hpf Ur Squamous Epith Cells <1 (0-4) /hpf Ur Transition Epith Cell <1 (0-1) /hpf Urine Bacteria Few H (None) /hpf Hyaline Casts 1 (0-2) /lpf Urine Mucus Occasional H (None) /hpf 02/14/24 02/14/24 Range/Units 16:14 16:55 WBC (3.8-10.6) k/uL RBC (3.80-5.40) m/uL Hgb (11.4-16.0) gm/dL Hct (34.0-46.0) % MCV (80.0-100.0) fL MCH (25.0-35.0) pg MCHC (31.0-37.0) g/dL RDW (11.5-15.5) % Plt Count (150-450) k/uL MPV Neutrophils % (Manual) % Band Neuts % (Manual) % Lymphocytes % (Manual) % Monocytes % (Manual) % Neutrophils # (Manual) (1.3-7.7) k/uL Lymphocytes # (Manual) (1.0-4.8) k/uL Monocytes # (Manual) (0-1.0) k/uL Nucleated RBCs (0-0) /100 WBC Manual Slide Review Sodium (137-145) mmol/L Potassium (3.5-5.1) mmol/L Chloride (98-107) mmol/L Carbon Dioxide (22-30) mmol/L Anion Gap mmol/L BUN (7-17) mg/dL Creatinine (0.52-1.04) mg/dL Est GFR (CKD-EPI)AfAm (>60 ml/min/1.73 sqM) Est GFR (CKD-EPI)NonAf (>60 ml/min/1.73 sqM) Glucose (74-99) mg/dL Lactic Ac Sepsis Rflx Y Plasma Lactic Acid Ike 2.8 H* (0.7-2.0) mmol/L Calcium (8.4-10.2) mg/dL Total Bilirubin (0.2-1.3) mg/dL AST (14-36) U/L ALT (4-34) U/L Alkaline Phosphatase (38-126) U/L Total Protein (6.3-8.2) g/dL Albumin (3.5-5.0) g/dL Amylase (30-110) U/L Lipase (23-300) U/L Urine Color Urine Appearance (Clear) Urine pH (5.0-8.0) Ur Specific [place] (1.001-1.035) Urine Protein (Negative) Urine Glucose (UA) (Negative) Urine Ketones (Negative) Urine Blood (Negative) Urine Nitrite (Negative) Urine Bilirubin (Negative) Urine Urobilinogen (<2.0) mg/dL Ur Leukocyte Esterase (Negative) Urine RBC (0-5) /hpf Urine WBC (0-5) /hpf Ur Squamous Epith Cells (0-4) /hpf Ur Transition Epith Cell (0-1) /hpf Urine Bacteria (None) /hpf Hyaline Casts (0-2) /lpf Urine Mucus (None) /hpf - Radiology Data Radiology results: report reviewed (CT abdomen pelvis positive for hernia positive for small bowel obstruction), image reviewed Disposition Clinical Impression: Dehydration, Abdominal pain, Small bowel obstruction, Hernia Disposition: ADMITTED IP TO THIS [facility] Condition: Fair Is patient prescribed a controlled substance at d/c from ED?: No Time of Disposition: 18:40
[2023-12-20 16:45] LABS: HCT 46.2 % (34.0-46.0); HGB 15.8 gm/dL (11.4-16.0); MCH 31.9 pg (25.0-35.0); MCHC 34.3 g/dL (31.0-37.0); MCV 92.9 fL (80.0-100.0); Mean Platelet Volume 8.7; Platelet Count 221 k/uL (150-450); RBC 4.97 m/uL (3.80-5.40); RDW 12.9 % (11.5-15.5); WBC 6.6 k/uL (3.8-10.6)
[2023-12-20 16:53] LABS: ALT 27 U/L (4-34); African American GFR (CKD) 89 (>60 ml/min/1.73 sqM); Albumin 4.3 g/dL (3.5-5.0); Amylase 79 U/L (30-110); Anion Gap 10 mmol/L; Blood Urea Nitrogen 30 mg/dL (7-17); Carbon Dioxide 25 mmol/L (22-30); Chloride 99 mmol/L (98-107); Glucose 200 mg/dL (74-99); Lipase 86 U/L (23-300); Non-African American GFR(CKD) 77 (>60 ml/min/1.73 sqM); Sodium 134 mmol/L (137-145); Total Bilirubin 1.3 mg/dL (0.2-1.3); Total Protein 7.2 g/dL (6.3-8.2)
[2023-12-20 16:55] LABS: AST 45 U/L (14-36); Alkaline Phosphatase 77 U/L (38-126); Potassium 4.3 mmol/L (3.5-5.1)
[2023-12-20 17:20] LABS: Band Neutrophils % 3 %; Lymphocytes # (M) 0.07 k/uL (1.0-4.8); Monocytes # (M) 0.13 k/uL (0-1.0); Neutrophils % (M) 94 %; Nucleated Red Blood Cells 0 /100 WBC (0-0); Total Cells Counted 100
--- NOTE | 2023-12-20 18:00 | CT ---
EXAMINATION TYPE: CT abdomen pelvis w con CT DLP: 669.6 mGycm, Automated exposure control for dose reduction was used. DATE OF EXAM: 12/20/2023 5:44 PM COMPARISON: None CLINICAL INDICATION:Female, 78 years old with history of pain; nausea, vomiting, groin pain TECHNIQUE: Axial CT abdomen pelvis w con;Sagittal and coronal reformats were created on a separate w orkstation. Contrast used:100 mL of Isovue 300 with IV Contrast, (none if empty) Oral contrast used: without Oral Contrast (none if empty) FINDINGS: LOWER CHEST: Calcified granuloma in the lingula. Streaky atelectasis/scarring lung bases. Posterior f at-containing Bochdalek hernia on the right ABDOMEN LIVER: Unremarkable GALLBLADDER AND BILE DUCTS: Unremarkable. PANCREAS: Unremarkable. SPLEEN: Scattered calcified granulomas. ADRENAL GLANDS: Unremarkable. KIDNEYS AND URETERS: No evidence of hydronephrosis or renal calculus. The ureters are unremarkable. Simple appearing left renal cyst. PELVIS Limited evaluation secondary to streak artifact from hip prostheses BLADDER: Unremarkable REPRODUCTIVE: Fibroid uterus with coarse calcifications. ABDOMEN & PELVIS STOMACH AND BOWEL: Small bowel obstruction with dilated loops of small bowel throughout the abdomen. Transition point felt to be right lower quadrant hernia. The bowel extending away from this hernia is nondistended extending from the right inguinal region to the cecum. Upstream is dilated all way to t he jejunum. Small bowel loops dilated up to 3.1 cm. Scattered colonic diverticula are present. PERITONEUM/RETROPERITONEUM: No evidence of pneumoperitoneum or free fluid. VASCULATURE: No evidence of aortic aneurysm. MUSCULOSKELETAL: No acute osseous abnormalities, bilateral hip with feces limit evaluation of the pel vis. Hardware and pelvis appear intact. Grade 1 anterolisthesis of L5 on S1. There is multilevel dege neration changes throughout spine. LYMPH NODES: No gross evidence for lymphadenopathy. SOFT TISSUE/ABDOMINAL WALL: Bilateral inguinal hernias containing loops of small bowel on the right w ith transition point. On the left is small bowel does enter the hernia, there is no evidence for ramos sition in the left inguinal hernia. IMPRESSION: 1. Small bowel obstruction with transition point within the right inguinal hernia. Surgical consulta tion recommended. Additional nonobstructing left inguinal hernia containing loops of small bowel. 1. Colonic diverticulosis. 2. Simple left renal cyst. 3. Chronic granulomatous changes to the spleen. Findings communicated to Dr. Efra Jimenez DO on 12/20/2023 5:[address] Reuben Newton.
[2023-12-20 18:14] LABS: Appearance,Urine Clear (Clear); Bacteria,Urine Few /hpf; Bilirubin,Urine Negative (Negative); Blood,Urine Negative (Negative); Color,Urine Yellow; Glucose,Urine (UA) Negative (Negative); Hyaline Casts,Urine 1 /lpf (0-2); Ketones,Urine Trace (Negative); Leukocyte Esterase,Urine Negative (Negative); Mucus,Urine Occasional /hpf; Nitrite,Urine Positive (Negative); PH, Urine 5.5 (5.0-8.0); Protein,Urine Trace (Negative); RBC,Urine <1 /hpf (0-5); Specific Gravity,Urine 1.028 (1.001-1.035); Squamous Epithelial Cell,Urine <1 /hpf (0-4); Transitional Epi Cells,Urine <1 /hpf (0-1); Urobilinogen,Urine <2.0 mg/dL (<2.0); WBC,Urine 1 /hpf (0-5)
[2023-12-20] MEDS ORDERED: NALOXONE 0.4 MG/ML 1 ML VIAL IV PRN (18:36)
[2023-12-20] MEDS ORDERED: ONDANSETRON 4 MG/2 ML VIAL IVP PRN (18:36)
[2023-12-20] MEDS: SODIUM CHLORIDE 0.9% 1,000 ML IV SCH (19:01)
[2023-12-20] MEDS: metroNIDAZOLE-NS PMX 500 MG in SALINE 1 100ML.BAG IVPB STA (19:14)
[2023-12-20] MEDS: HYDROmorphone 0.5 MG/0.5 ML SYRINGE IVP PRN (21:19)
[2023-12-21] MEDS: metroNIDAZOLE-NS PMX 500 MG in SALINE 1 100ML.BAG IVPB SCH (02:00)
[2023-12-21 09:33] LABS: ALT 26 U/L (4-34); AST 33 U/L (14-36); African American GFR (CKD) >90 (>60 ml/min/1.73 sqM); Albumin 2.9 g/dL (3.5-5.0); Albumin/Globulin Ratio 1.2; Alkaline Phosphatase 60 U/L (38-126); Anion Gap 7 mmol/L; Blood Urea Nitrogen 21 mg/dL (7-17); Calcium 8.6 mg/dL (8.4-10.2); Carbon Dioxide 24 mmol/L (22-30); Chloride 108 mmol/L (98-107); Globulin 2.5 g/dL; Glucose 99 mg/dL (74-99); Non-African American GFR(CKD) 83 (>60 ml/min/1.73 sqM); Sodium 139 mmol/L (137-145); Total Bilirubin 0.7 mg/dL (0.2-1.3); Total Protein 5.4 g/dL (6.3-8.2)
[2023-12-21 09:34] LABS: Potassium 3.6 mmol/L (3.5-5.1)
[2023-12-21 09:45] LABS: HCT 37.9 % (34.0-46.0); MCH 31.2 pg (25.0-35.0); MCV 94.6 fL (80.0-100.0); Mean Platelet Volume 8.5; Platelet Count 189 k/uL (150-450); RBC 4.01 m/uL (3.80-5.40); RDW 13.1 % (11.5-15.5); WBC 4.7 k/uL (3.8-10.6)
[2023-12-21 09:48] LABS: HGB 12.5 gm/dL (11.4-16.0)
[2023-12-21] MEDS: LEVOTHYROXINE 112 MCG TAB PO SCH (10:42)
[2023-12-21] MEDS: METOPROLOL TARTRATE 50 MG TAB PO SCH (10:44)
[2023-12-21] MEDS: PARoxetine 10 MG TAB PO SCH (10:53)
[2023-12-21] MEDS: prednisoLONE ACETATE 1% OPHTH DROPS 5 ML BTL RIGHT EYE SCH (10:54)
[2023-12-21] MEDS: prednisoLONE ACETATE 1% OPHTH DROPS 5 ML BTL LEFT EYE SCH (10:54)
[2023-12-21 11:48] LABS: Band Neutrophils % 6 %; Eosinophils # (M) 0.14 k/uL (0-0.7); Lymphocytes # (M) 0.89 k/uL (1.0-4.8); Monocytes # (M) 0.99 k/uL (0-1.0); Neutrophils % (M) 51 %; Nucleated Red Blood Cells 0 /100 WBC (0-0); Total Cells Counted 100
[2023-12-21] MEDS: LACTATED RINGERS 1,000 ML IV SCH (13:30)
[2023-12-21] MEDS ORDERED: ACETAMINOPHEN IV (For NPO) 1,000 MG in EMPTY BAG 1 BAG IVPB ONE (13:35)
--- NOTE | 2023-12-21 13:41 | P.HPIM ---
History of Present Illness H&P Date: 12/21/23 This is a very pleasant 78-year-old female who presented to the emergency department with increased abdominal pain that started Monday and further progressed into having extreme nausea with vomiting and some diarrhea Monday night and the pain continued and patient was evaluated by primary care provider Dr. Francisco Javier Dawson and instructed to come to the hospital for further evaluation. Patient does have history of abdominal hernia and inguinal hernia but had been experiencing more severe pain on the right since Monday. 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 Patient underwent CT abdomen in the ER which showed a small bowel obstruction with transition point within the right inguinal hernia with surgical consultation recommended and an additional nonobstructing left inguinal hernia containing loops of small bowel with colonic diverticulosis, a simple left renal cysts, and chronic granulomatosis changes to the spleen noted. Patient was admitted to medicine with general surgery on consult. Patient was made n.p.o. and started on antibiotics in the form of ceftriaxone as well as Flagyl and gentle IV hydration. Patient awaiting surgical evaluation. Labs reviewed and white count within normal limits, hemoglobin is stable at 12.5, sodium 139, potassium 3.6, BUN 21 with a creatinine of 0.68, lactic acid initially was 2.8 although has normalized and is 1.3, magnesium 2.0, LFTs within normal limits. REVIEW OF SYSTEMS: CONSTITUTIONAL: No fever, no malaise, no fatigue. HEENT: No recent visual problems or hearing problems. Denied any sore throat. CARDIOVASCULAR: No chest pain, orthopnea, PND, no palpitations, no syncope. PULMONARY: No shortness of breath, no cough, no hemoptysis. GASTROINTESTINAL: Reports of loose stool and diarrhea, reports of nausea, reports vomiting that has subsided since yesterday, reports abdominal tenderness and right groin pain. NEUROLOGICAL: No headaches, no weakness, no numbness. HEMATOLOGICAL: Denies any bleeding or petechiae. GENITOURINARY: Denies any burning micturition, frequency, or urgency. MUSCULOSKELETAL/RHEUMATOLOGICAL: Denies any joint pain, swelling, or any muscle pain. ENDOCRINE: Denies any polyuria or polydipsia. The rest of the 14-point review of systems is negative. PHYSICAL EXAMINATION: GENERAL: The patient is alert and oriented x3, Well developed, well nourished. Elderly appearing, thin built HEENT: Pupils are round and equally reacting to light. EOMI. No scleral icterus. No conjunctival pallor. Normocephalic, atraumatic. No pharyngeal erythema. No thyromegaly. CARDIOVASCULAR: S1 and S2 present. No murmurs, rubs, or gallops. PULMONARY: Chest is clear to auscultation, no wheezing or crackles. ABDOMEN: Soft, mildly tender in the lower abdomen and right groin area on palpation, nondistended, normoactive bowel sounds. No palpable organomegaly. MUSCULOSKELETAL: No joint swelling or deformity. EXTREMITIES: No cyanosis, clubbing, or pedal edema. NEUROLOGICAL: Gross neurological examination did not reveal any focal deficits. SKIN: No rashes. Assessment: Abdominal pain with nausea, vomiting, diarrhea likely secondary to small bowel obstruction with loops noted in the right inguinal hernia on CT Lactic acidosis, present on admission likely secondary to vomiting and diarrhea, improved History of inguinal hernia Hypertension history GERD History of osteoarthritis Hypothyroidism History of squamous cell skin cancer History of depression GI prophylaxis DVT prophylaxis Full code Plan: Patient is currently n.p.o. underwent CT abdomen as mentioned previously and general surgery has been consulted and tentatively scheduled for surgery Patient to continue n.p.o. and will review and resume appropriate home medications Patient reports she recently underwent cataract surgery and is maintained on eyedrops. Home medications including drops have been resumed Continue with cautious narcotic pain medication management given patient's age and avoid [employer]IM[employer]EL[employer] IN[employer]STIGATOR agents if possible Will follow-up on repeat labs in the a.m. Await surgical report The impression and plan of care has been dictated by Shirley Simon, Nurse Practitioner as directed. Dr. Sandy MD I have performed a history and examination and MDM of this patient, discussed the same with the dictator, and agree with the dictator's assessment and plan as written ,documented as a scribe. Based on total visit time, I have performed more than 50% of the visit. Past Medical History Past Medical History: Cancer, GERD/Reflux, Hypertension, Osteoarthritis (OA), Thyroid Disorder Additional Past Medical History / Comment(s): squamous cell skin cancer., pt was hospitalized 06/22 to 06/27/22 for bleeding in stomach. History of Any Multi-Drug Resistant Organisms: None Reported Past Surgical History: Joint Replacement, Orthopedic Surgery, Tonsillectomy Additional Past Surgical History / Comment(s): squamous skin cancer off nose, Eliseo total knee surgeries., shoulder surgery., R total hip. colonoscopy, EGD. Past Anesthesia/Blood Transfusion Reactions: Previous Problems w/ Anesthesia Additional Past Anesthesia/Blood Transfusion Reaction / Comment(s): stated "b/p was very low and irregular w/ spinal for total rt hip 08-25-20.". no hx blood transfusion Past Psychological History: Depression Smoking Status: Never smoker Past Alcohol Use History: None Reported Past Drug Use History: Marijuana - Past Family History Daughter(s) Family Medical History: Cancer Additional Family Medical History / Comment(s): OVARIAN CANCER, 2013 Medications and Allergies Home Medications Medication Instructions Recorded Confirmed Type Levothyroxine Sodium [Synthroid] 112 mcg PO DAILY 03/18/14 12/20/23 History Losartan [Cozaar] 50 mg PO DAILY 06/22/22 12/20/23 History Metoprolol Tartrate [Lopressor] 50 mg PO BID 06/22/22 12/20/23 History amLODIPine [Norvasc] 10 mg PO DAILY 06/22/22 12/20/23 History Pantoprazole Sodium [Protonix] 40 mg PO DAILY 12/29/22 12/20/23 History HYDROcodone/APAP 5-325MG [[place] 1 tab PO BID PRN 12/20/23 12/20/23 History 5-325] PARoxetine HCL 30 mg PO DAILY 12/20/23 12/20/23 History Prednisolone Acetate/Pf See Taper LEFT EYE DIRECTED 12/20/23 12/20/23 History [Prednisolone Acet 1% Eye Drop] prednisoLONE ACETATE 1% OPHTH 1 drop RIGHT EYE DAILY 12/20/23 12/20/23 History [Pred Forte 1%] Allergies Allergy/AdvReac Type Severity Reaction Status Date / Time Penicillins Allergy Itching Verified 12/20/23 21:20 morphine AdvReac Severe Rash/Hives, Verified 12/20/23 21:20 itching Fjhejts-[id number] Reductase AdvReac Due to Verified 12/20/23 21:20 Inhibitor Bleeding [Bhiquea-Joz-Iau Reductase ulcers Inhibitor] Physical Exam Vitals: Vital Signs Temp Pulse Resp BP Pulse Ox 12/21/23 07:38 98.2 F 67 16 92/59 92 L 12/21/23 05:02 82 16 106/63 94 L 12/21/23 04:28 68 16 97/54 95 12/21/23 03:22 65 16 95/44 12/20/23 21:18 84 16 97/54 94 L 12/20/23 18:42 104 H 18 90/62 91 L 12/20/23 16:10 96 18 135/67 94 L 12/20/23 15:06 98.4 F 105 H 18 125/77 93 L Intake and Output 12/20/23 12/21/23 12/21/23 22:59 06:59 14:59 Other: Weight 54.431 kg Results CBC & Chem 7: 12/21/23 08:18 12/21/23 08:18 Labs: Abnormal Lab Results - Last 24 Hours (Table) 12/20/23 12/20/23 12/20/23 Range/Units 16:14 16:14 16:14 Hct 46.2 H (34.0-46.0) % Lymphocytes # (Manual) 0.07 L (1.0-4.8) k/uL Sodium 134 L (137-145) mmol/L Chloride (98-107) mmol/L BUN 30 H (7-17) mg/dL Glucose 200 H (74-99) mg/dL Plasma Lactic Acid Ike (0.7-2.0) mmol/L AST 45 H (14-36) U/L Total Protein (6.3-8.2) g/dL Albumin (3.5-5.0) g/dL Urine Protein Trace H (Negative) Urine Ketones Trace H (Negative) Urine Nitrite Positive H (Negative) Urine Bacteria Few H (None) /hpf Urine Mucus Occasional H (None) /hpf 12/20/23 12/21/23 Range/Units 16:14 08:18 Hct (34.0-46.0) % Lymphocytes # (Manual) (1.0-4.8) k/uL Sodium (137-145) mmol/L Chloride 108 H (98-107) mmol/L BUN 21 H (7-17) mg/dL Glucose (74-99) mg/dL Plasma Lactic Acid Ike 2.8 H* (0.7-2.0) mmol/L AST (14-36) U/L Total Protein 5.4 L (6.3-8.2) g/dL Albumin 2.9 L (3.5-5.0) g/dL Urine Protein (Negative) Urine Ketones (Negative) Urine Nitrite (Negative) Urine Bacteria (None) /hpf Urine Mucus (None) /hpf Thrombosis Risk Factor Assmnt - DVT/VTE Prophylaxis DVT/VTE Prophylaxis: Mechanical Prophylaxis ordered Assessment and Plan Time with Patient: Greater than 30
--- NOTE | 2023-12-21 14:31 | P.GSCN ---
History of Present Illness Consult date: 12/21/23 History of present illness: CHIEF COMPLAINT: Abdominal pain HISTORY OF PRESENT ILLNESS: This is a 78-year-old female who presented to the ER with complaints of abdominal pain. Patient reports that Monday she was outside picking up sticks. And then Monday evening started having right lower quadrant abdominal pain and hernia bulge. She has a known left inguinal hernia that has been present for a while. She had vomiting on Monday and Monday. She does report a few episodes of diarrhea. Due to the continuous pain in the right inguinal area she presented to the ER. She had a CT scan abdomen and pelvis that reported small bowel obstruction with transition point within the right inguinal hernia. Additional nonobstructing left inguinal hernia containing lo ops of small bowel. Patient denies being on any blood thinners. Denies any cardiac history. Denies any prior abdominal surgeries. PAST MEDICAL HISTORY: GERD, hypertension, osteoarthritis, hypothyroidism, skin cancer,pt was hospitalized 06/22 to 06/27/22 for bleeding in stomach. PAST SURGICAL HISTORY: Joint Replacement, Orthopedic Surgery, Tonsillectomy MEDICATIONS: See below ALLERGIES: See below SOCIAL HISTORY: No illicit drug use. REVIEW OF SYSTEMS: CONSTITUTIONAL: Denies fever or chills. HEENT: Denies blurred vision, vision changes, or eye pain. Denies hemoptysis CARDIOVASCULAR: Denies chest pain or pressure. RESPIRATORY: No shortness of breath. GASTROINTESTINAL: See HPI for pertinent findings HEMATOLOGIC: Denies bleeding disorders. GENITOURINARY: Denies any blood in urine or increased urinary frequency. SKIN: Denies pruitis. Denies rash. PHYSICAL EXAM: VITAL SIGNS: Reviewed GENERAL: Well-developed in no acute distress. HEENT: No sclera icterus. Extraocular movements grossly intact. Moist buccal mucosa. Head is atraumatic, normocephalic. No nasal drainage. ABDOMEN: Soft. Nondistended. Patient with evidence of left inguinal hernia that is reducible. Right inguinal hernia reduced but tender with palpation. NEUROLOGIC: Alert and oriented. Cranial nerves II through XII grossly intact. LABORATORY DATA: WBC is 4.7 Hgb 12.5 platelets 189 Sodium is 139 potassium 3.6 creatinine 0.68 Lactic acid 2.8 down to 1.3 IMAGING: CT scan abdomen and pelvis reports small bowel obstruction with transition point within the right inguinal hernia. Additional nonobstructing left inguinal hernia containing loops of small bowel. Colonic diverticulosis. Simple left renal cyst. ASSESSMENT: 1. Bilateral inguinal hernias. Reducible. CT report small bowel obstruction with transition point in right inguinal hernia and nonobstructing left inguinal hernia containing loops of small bowel. PLAN: -Patient scheduled for bilateral inguinal hernia repair today with Dr. Marroquin -Keep patient n.p.o. -Continue antibiotics -Continue IV fluids -Continue supportive care Physician Cinder Pitman note has been reviewed by physician. Signing provider agrees with the documented findings, assessment, and plan of care. Past Medical History Past Medical History: Cancer, GERD/Reflux, Hypertension, Osteoarthritis (OA), Thyroid Disorder Additional Past Medical History / Comment(s): squamous cell skin cancer., pt was hospitalized 06/22 to 06/27/22 for bleeding in stomach. History of Any Multi-Drug Resistant Organisms: None Reported Past Surgical History: Joint Replacement, Orthopedic Surgery, Tonsillectomy Additional Past Surgical History / Comment(s): squamous skin cancer off nose, Eliseo total knee surgeries., shoulder surgery., R total hip. colonoscopy, EGD. Past Anesthesia/Blood Transfusion Reactions: Previous Problems w/ Anesthesia Additional Past Anesthesia/Blood Transfusion Reaction / Comm: stated "b/p was very low and irregular w/ spinal for total rt hip 08-25-20.". no hx blood transfusion Past Psychological History: Depression Smoking Status: Never smoker Past Alcohol Use History: None Reported Past Drug Use History: Marijuana - Past Family History Daughter(s) Family Medical History: Cancer Additional Family Medical History / Comment(s): OVARIAN CANCER, 2013 Medications and Allergies Home Medications Medication Instructions Recorded Confirmed Type Levothyroxine Sodium [Synthroid] 112 mcg PO DAILY 03/18/14 12/20/23 History Losartan [Cozaar] 50 mg PO DAILY 06/22/22 12/20/23 History Metoprolol Tartrate [Lopressor] 50 mg PO BID 06/22/22 12/20/23 History amLODIPine [Norvasc] 10 mg PO DAILY 06/22/22 12/20/23 History Pantoprazole Sodium [Protonix] 40 mg PO DAILY 12/29/22 12/20/23 History HYDROcodone/APAP 5-325MG [[place] 1 tab PO BID PRN 12/20/23 12/20/23 History 5-325] PARoxetine HCL 30 mg PO DAILY 12/20/23 12/20/23 History Prednisolone Acetate/Pf See Taper LEFT EYE DIRECTED 12/20/23 12/20/23 History [Prednisolone Acet 1% Eye Drop] prednisoLONE ACETATE 1% OPHTH 1 drop RIGHT EYE DAILY 12/20/23 12/20/23 History [Pred Forte 1%] Allergies Allergy/AdvReac Type Severity Reaction Status Date / Time Penicillins Allergy Itching Verified 12/20/23 21:20 morphine AdvReac Severe Rash/Hives, Verified 12/20/23 21:20 itching Zrermps-JUI-WpN Reductase AdvReac Due to Verified 12/20/23 21:20 Inhibitor Bleeding [Miigosw-Shm-Qud Reductase ulcers Inhibitor] Surgical - Exam Vital Signs Temp Pulse Resp BP Pulse Ox 98.4 F 105 H 18 125/77 93 L 12/20/23 15:06 12/20/23 15:06 12/20/23 15:06 12/20/23 15:06 12/20/23 15:06 Results - Labs 12/21/23 08:18 12/21/23 08:18 Abnormal Lab Results - Last 24 Hours (Table) 12/20/23 12/20/23 12/20/23 Range/Units 16:14 16:14 16:14 Hct 46.2 H (34.0-46.0) % Lymphocytes # (Manual) 0.07 L (1.0-4.8) k/uL Sodium 134 L (137-145) mmol/L Chloride (98-107) mmol/L BUN 30 H (7-17) mg/dL Glucose 200 H (74-99) mg/dL Plasma Lactic Acid Ike (0.7-2.0) mmol/L AST 45 H (14-36) U/L Total Protein (6.3-8.2) g/dL Albumin (3.5-5.0) g/dL Urine Protein Trace H (Negative) Urine Ketones Trace H (Negative) Urine Nitrite Positive H (Negative) Urine Bacteria Few H (None) /hpf Urine Mucus Occasional H (None) /hpf 12/20/23 12/21/23 12/21/23 Range/Units 16:14 08:18 08:18 Hct (34.0-46.0) % Lymphocytes # (Manual) 0.89 L (1.0-4.8) k/uL Sodium (137-145) mmol/L Chloride 108 H (98-107) mmol/L BUN 21 H (7-17) mg/dL Glucose (74-99) mg/dL Plasma Lactic Acid Ike 2.8 H* (0.7-2.0) mmol/L AST (14-36) U/L Total Protein 5.4 L (6.3-8.2) g/dL Albumin 2.9 L (3.5-5.0) g/dL Urine Protein (Negative) Urine Ketones (Negative) Urine Nitrite (Negative) Urine Bacteria (None) /hpf Urine Mucus (None) /hpf Diabetes panel 12/20/23 12/21/23 Range/Units 16:14 08:18 Sodium 134 L 139 (137-145) mmol/L Potassium 4.3 3.6 (3.5-5.1) mmol/L Chloride 99 108 H (98-107) mmol/L Carbon Dioxide 25 24 (22-30) mmol/L BUN 30 H 21 H (7-17) mg/dL Creatinine 0.74 0.68 (0.52-1.04) mg/dL Glucose 200 H 99 (74-99) mg/dL Calcium 10.0 8.6 (8.4-10.2) mg/dL AST 45 H 33 (14-36) U/L ALT 27 26 (4-34) U/L Alkaline Phosphatase 77 60 (38-126) U/L Total Protein 7.2 5.4 L (6.3-8.2) g/dL Albumin 4.3 2.9 L (3.5-5.0) g/dL Calcium panel 12/20/23 12/21/23 Range/Units 16:14 08:18 Calcium 10.0 8.6 (8.4-10.2) mg/dL Phosphorus 3.0 (2.5-4.5) mg/dL Albumin 4.3 2.9 L (3.5-5.0) g/dL Pituitary panel 12/20/23 12/21/23 Range/Units 16:14 08:18 Sodium 134 L 139 (137-145) mmol/L Potassium 4.3 3.6 (3.5-5.1) mmol/L Chloride 99 108 H (98-107) mmol/L Carbon Dioxide 25 24 (22-30) mmol/L BUN 30 H 21 H (7-17) mg/dL Creatinine 0.74 0.68 (0.52-1.04) mg/dL Glucose 200 H 99 (74-99) mg/dL Calcium 10.0 8.6 (8.4-10.2) mg/dL Adrenal panel 12/20/23 12/21/23 Range/Units 16:14 08:18 Sodium 134 L 139 (137-145) mmol/L Potassium 4.3 3.6 (3.5-5.1) mmol/L Chloride 99 108 H (98-107) mmol/L Carbon Dioxide 25 24 (22-30) mmol/L BUN 30 H 21 H (7-17) mg/dL Creatinine 0.74 0.68 (0.52-1.04) mg/dL Glucose 200 H 99 (74-99) mg/dL Calcium 10.0 8.6 (8.4-10.2) mg/dL Total Bilirubin 1.3 0.7 (0.2-1.3) mg/dL AST 45 H 33 (14-36) U/L ALT 27 26 (4-34) U/L Alkaline Phosphatase 77 60 (38-126) U/L Total Protein 7.2 5.4 L (6.3-8.2) g/dL Albumin 4.3 2.9 L (3.5-5.0) g/dL
[2023-12-21] MEDS: LACTATED RINGERS 1,000 ML IV ONE ×2 (15:40→16:48)
[2023-12-21] MEDS: ONDANSETRON 4 MG/2 ML VIAL IVP ONE (16:19)
[2023-12-21] MEDS: DEXAMETHASONE SOD PHOSPHATE 4 MG/ML 1 ML VIAL IVP ONE (16:19)
[2023-12-21] MEDS: HEPARIN SODIUM,PORCINE 5,000 UNIT/ML 1 ML VIAL SQ ONE (16:41)
[2023-12-21] MEDS ORDERED: METOPROLOL TARTRATE 5 MG/5 ML VIAL IVP ONE (16:42)
[2023-12-21] MEDS ORDERED: SUCCINYLCHOLINE CHLORIDE 200 MG/10 ML VIAL IV ONE (16:42)
[2023-12-21] MEDS ORDERED: ESMOLOL 100 MG/10 ML VIAL ONE (16:42)
[2023-12-21] MEDS ORDERED: ROCURONIUM 10 MG/ML (5 ML VIAL) IV ONE (16:42)
[2023-12-21] MEDS ORDERED: LIDOCAINE 1% INJ 10MG/ML (20 ML MDV) ONE (16:42)
[2023-12-21] MEDS ORDERED: GLYCOPYRROLATE 0.2 MG/ML 2 ML VIAL ONE (16:42)
[2023-12-21] MEDS ORDERED: NEOSTIGMINE 1 MG/ML 10 ML VIAL ONE (16:42)
[2023-12-21] MEDS ORDERED: fentaNYL (PF) 50 MCG/ML 2 ML AMP ONE (16:42)
[2023-12-21] MEDS ORDERED: PROPOFOL 10 MG/ML 20 ML VIAL IV ONE (16:42)
[2023-12-21] MEDS: LIDOCAINE 1%-EPI 1:100,000 50 ML VIAL SQ ONE ×2 (17:05)
[2023-12-21] MEDS ORDERED: ONDANSETRON 4 MG/2 ML VIAL IVP PRN (17:50)
[2023-12-21] MEDS ORDERED: HYDROmorphone 1 MG/ML 1 ML SYRINGE IVP PRN (17:50)
--- NOTE | 2023-12-21 17:50 | P.OP ---
Date of Procedure: 12/21/23 Preoperative Diagnosis: Bilateral inguinal hernia Postoperative Diagnosis: Bilateral inguinal hernia Procedure(s) Performed: Laparoscopic robotic assisted pair of bilateral inguinal hernia Transversus abdominis plane block Anesthesia: CHELITA Surgeon: Malcolm Marroquin Estimated Blood Loss (ml): 10 Pathology: none sent Condition: stable Disposition: PACU Description of Procedure: The patient's placed on the operating table in the supine position. The patient received general anesthesia. The patient's abdomen was prepped and draped in usual sterile fashion. The skin was anesthetized 1% local Xylocaine at the incision sites. Using an 11 blade a skin incision was made at the umbilicus. The fascia was grasped with a Siloam and then the peritoneal cavity was entered with the Veress needle. Position of the Veress needle was confirmed with a positive drop test. After adequate insufflation a 5 mm trocar was placed into the peritoneal cavity. The Laparoscope was placed the peritoneal cavity. And a robotic 8 mm trocar was placed in the right lateral position and then another 8 mm robotic trochars placed in the left lateral position. The original 5 mm trocar was exchanged for a 12 mm trocar. A four-quadrant transversus abdominis plane block was performed 1% local Xyl ocaine. The patient was placed in reverse Trendelenburg and then the patient was docked to the robot. Next the peritoneum over top of the right inguinal hernia was incised and then using blunt and sharp dissection and electrocautery the hernia sac was dissected free from the floor of the inguinal canal. The hernia sac was completely reduced into the peritoneal cavity. And then using the Pro fishing hand mesh the hernia was repaired. The peritoneum was then sutured with 20V lock suture. Next the peritoneum over top of the left inguinal hernia was incised and then using blunt and sharp dissection and electrocautery the hernia sac was dissected free from the floor of the inguinal canal. The hernia sac was completely reduced into the peritoneal cavity. And then using the Pro fishing hand mesh the hernia was repaired. The peritoneum was then sutured with 20V lock suture. The patient was then undocked the robot. The needle was withdrawn from the peritoneal cavity. The umbilical trocar site was closed with 0 Ethibond suture. The skin was closed interrupted 3-0 Monocryl suture. Dermabond dressing was applied. Patient was sent to recovery in stable condition.
[2023-12-21] MEDS: ADENOSINE 3 MG/ML 2 ML VIAL IVP ONE (18:23)
[2023-12-21] MEDS ORDERED: POTASSIUM CHLORIDE 20 MEQ in WATER FOR INJECTION 1 100ML.BAG IVPB STA (18:27)
[2023-12-21] MEDS: DILTIAZEM 125 MG in SODIUM CHLORIDE 0.9% 100 ML IV SCH ×2 (18:45→22:04)
[2023-12-21] MEDS: POTASSIUM CHLORIDE 10 MEQ in WATER FOR INJECTION 1 100ML.BAG IVPB SCH (18:50)
[2023-12-21] MEDS: HYDROcodone/APAP 7.5-325MG 1 EACH TAB PO PRN (23:46)
[2023-12-21] MEDS: TEMAZEPAM 7.5 MG CAP PO ONE (23:46)
--- NOTE | 2023-12-22 11:26 | P.PN ---
Subjective Progress Note Date: 12/22/23 CHIEF COMPLAINT: Bilateral inguinal hernias HISTORY OF PRESENT ILLNESS: Postop day #1 status post laparoscopic robotic assisted repair of bilateral inguinal hernias. Patient reports her pain is controlled. She is tolerating diet. She has been up to ambulate. She is afebrile. Patient seen and examined with Dr. Marroquin PHYSICAL EXAM: VITAL SIGNS: Reviewed. GENERAL: Well-developed in no acute distress. ABDOMEN: Soft. Nondistended. NEUROLOGIC: Alert and oriented. Cranial nerves II through XII grossly intact. ASSESSMENT: 1. Bilateral inguinal hernias status post laparoscopic robotic assisted repair PLAN: -Patient can be discharged from surgical standpoint when medically cleared -Okay to resume anticoagulation tomorrow -Continue regular diet -Continue pain management Physician [employer] note has been reviewed by physician. Signing provider agrees with the documented findings, assessment, and plan of care. Objective - Vital Signs Vital signs: Vital Signs Temp 98.9 F 12/22/23 07:27 Pulse 90 12/22/23 08:00 Resp 16 12/22/23 07:30 BP 105/65 12/22/23 07:27 Pulse Ox 95 12/22/23 07:27 FiO2 Intake & Output 12/21/23 12/22/23 12/22/23 18:59 06:59 18:59 Intake Total 700 741 110 Output Total 5 1150 Balance 695 -409 110 Weight 54.431 kg 54.431 kg Intake: IV 700 741 Invasive Line 1 10 Invasive Line 2 10 Oral 110 Output: Urine 1150 Estimated Blood Loss 5 Other: Voiding Method Indwelling Catheter Indwelling Catheter # Voids 1 # Bowel Movements 1 - Labs CBC & Chem 7: 12/21/23 08:18 12/21/23 08:18 Labs: Abnormal Lab Results - Last 24 Hours (Table) 12/21/23 Range/Units 08:18 Lymphocytes # (Manual) 0.89 L (1.0-4.8) k/uL
[2023-12-22 11:28] VITALS: PULSE 56
[2023-12-22 11:29] VITALS: BP 123/72; RESP 22; TEMP 98
--- NOTE | 2023-12-22 12:16 | P.CRDCN ---
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 She has a past medical history of hypertension, hyperlipidemia. Patient has been brought into the hospital for hernia repair in a postop period, was found to have A-fib with RVR and thus this consult was requested. She is not requiring oxygen. Patient denies having any chest pain, no shortness of breath, no palpitations. EKG A-fib at 126 bpm, now patient is in sinus rhythm. Review Of Systems: At the time of my exam: CONSTITUTIONAL: Denies fever or chills. HEENT: Denies blurred vision, vision changes, or eye pain. Denies hemoptysis CARDIOVASCULAR: Denies chest pain. Denies orthopnea. Denies PND. Denies palpitations RESPIRATORY: Denies shortness of breath. GASTROINTESTINAL: Denies abdominal pain. Denies nausea or vomiting. HEMATOLOGIC: Denies bleeding disorders. GENITOURINARY: Denies any blood in urine. SKIN: Denies pruitis. Denies rash. Physical examination: Gen: This is a 78-year-old female in no acute distress VS: reviewed HEENT: Head is atraumatic, normocephalic. Pupils equal, round. Sclerae is anicteric. NECK: Supple. No JVD. LUNGS: Clear to auscultation. No wheezes or rhonchi. No intercostal retractions. HEART: Regular rate and rhythm. No murmur. ABDOMEN: Soft No tenderness. EXTREMITIES: No pedal edema. No calf tenderness. NEUROLOGICAL: Patient is awake, alert and oriented x3. Assessment: New onset atrial fibrillation with RVR, converted to sinus rhythm Hypertension Hyperlipidemia Hernia repair Plan: Resume patient's home cardiac medications Start patient on Eliquis 5 mg twice daily. Patient will start tomorrow morning and this has been cleared by general surgery. Patient is cleared for discharge and may follow-up with Dr. Hayley Shane in 2 weeks in the office. Thank you kindly for this consultation. Nurse practitioner note has been reviewed, I agree with documented findings and plan of care. Patient was seen and examined. Past Medical History Past Medical History: Cancer, GERD/Reflux, Hypertension, Osteoarthritis (OA), Thyroid Disorder Additional Past Medical History / Comment(s): squamous cell skin cancer, pt was hospitalized 06/22 to 06/27/22 for bleeding in stomach History of Any Multi-Drug Resistant Organisms: None Reported Past Surgical History: Joint Replacement, Orthopedic Surgery, Tonsillectomy Additional Past Surgical History / Comment(s): squamous skin cancer off nose, Eliseo total knee surgeries, shoulder surgery, R total hip, L total hip, colonoscopy, EGD. Past Anesthesia/Blood Transfusion Reactions: Previous Problems w/ Anesthesia Additional Past Anesthesia/Blood Transfusion Reaction / Comment(s): stated "b/p was very low and irregular w/ spinal for total rt hip 08-25-20.". no hx blood transfusion Past Psychological History: Depression Smoking Status: Never smoker Past Alcohol Use History: None Reported Past Drug Use History: Marijuana Additional Drug Use History / Comment(s): No marijuana use at this time. - Past Family History Daughter(s) Family Medical History: Cancer Additional Family Medical History / Comment(s): OVARIAN CANCER, 2013 Medications and Allergies Home Medications Medication Instructions Recorded Confirmed Type Levothyroxine Sodium [Synthroid] 112 mcg PO DAILY 03/18/14 12/21/23 History Losartan [Cozaar] 50 mg PO DAILY 06/22/22 12/21/23 History Metoprolol Tartrate [Lopressor] 50 mg PO BID 06/22/22 12/21/23 History amLODIPine [Norvasc] 10 mg PO DAILY 06/22/22 12/21/23 History Pantoprazole Sodium [Protonix] 40 mg PO DAILY 12/29/22 12/21/23 History HYDROcodone/APAP 5-325MG [[place] 1 tab PO BID PRN 12/20/23 12/20/23 History 5-325] PARoxetine HCL 30 mg PO DAILY 12/20/23 12/21/23 History Prednisolone Acetate/Pf See Taper LEFT EYE DIRECTED 12/20/23 12/21/23 History [Prednisolone Acet 1% Eye Drop] prednisoLONE ACETATE 1% OPHTH 1 drop RIGHT EYE DAILY 12/20/23 12/21/23 History [Pred Forte 1%] Apixaban [Eliquis] 5 mg PO BID #180 tab 12/22/23 Rx HYDROcodone/APAP 5-325MG [[place] 1 tab PO Q6HR PRN 3 Days #12 tab 12/22/23 Rx 5-325] Allergies Allergy/AdvReac Type Severity Reaction Status Date / Time Penicillins Allergy Itching Verified 12/21/23 15:44 morphine AdvReac Severe Rash/Hives, Verified 12/21/23 15:44 itching Vcjzrsy-HDL-SzH Reductase AdvReac Due to Verified 12/21/23 15:44 Inhibitor Bleeding [Blsbxlj-Urg-Zox Reductase ulcers Inhibitor] Physical Exam Vitals: Vital Signs Temp Pulse Pulse Pulse Resp BP BP 12/22/23 07:30 65 16 12/22/23 07:27 98.9 F 65 16 12/22/23 04:00 98.1 F 90 14 104/63 12/22/23 00:00 98.2 F 97 16 102/65 12/21/23 21:30 98.3 F 136 H 16 12/21/23 20:15 107 H 16 12/21/23 20:00 103 H 16 12/21/23 19:45 123 H 18 12/21/23 19:30 118 H 16 12/21/23 19:15 139 H 18 12/21/23 19:00 124 H 16 12/21/23 18:45 139 H 16 12/21/23 18:30 154 H 16 12/21/23 18:15 143 H 16 12/21/23 15:46 98.7 F 83 16 12/21/23 13:29 129/72 12/21/23 10:43 83 16 106/63 BP Pulse Ox 12/22/23 07:30 12/22/23 07:27 105/65 95 12/22/23 04:00 92 L 12/22/23 00:00 93 L 12/21/23 21:30 97/63 93 L 12/21/23 20:15 99/61 95 12/21/23 20:00 97/54 96 12/21/23 19:45 101/69 94 L 12/21/23 19:30 99/62 96 12/21/23 19:15 94/63 94 L 12/21/23 19:00 99/63 93 L 12/21/23 18:45 83/60 94 L 12/21/23 18:30 79/53 96 12/21/23 18:15 109/73 98 12/21/23 15:46 126/61 97 12/21/23 13:29 12/21/23 10:43 95 Intake and Output 12/21/23 12/22/23 12/22/23 22:59 06:59 14:59 Intake Total 1441 110 Output Total 655 500 Balance 786 -500 110 Intake: IV 1441 Invasive Line 1 10 Invasive Line 2 10 Oral 110 Output: Urine 650 500 Estimated Blood Loss 5 Other: Voiding Method Indwelling Catheter Indwelling Catheter # Voids 1 # Bowel Movements 1 Weight 54.431 kg Results 12/21/23 08:18 12/21/23 08:18 Current Medications Generic Name Dose Route Start Last Admin Trade Name Freq PRN Reason Stop Dose Admin Hydrocodone Bitart/Acetaminophen 1 each 12/21/23 17:50 12/21/23 23:46 Hydrocodone/Apap 7.5-325mg 1 Each Tab PO 1 each Q6H PRN Administration Pain Hydromorphone HCl 0.5 mg 12/20/23 18:36 12/20/23 21:19 Hydromorphone 0.5 Mg/0.5 Ml Syringe IVP 0.5 mg Q3HR PRN Administration Moderate Pain (Scale 4 to 6) Hydromorphone HCl 1 mg 12/21/23 17:50 Hydromorphone 1 Mg/Ml 1 Ml Syringe IVP Q3HR PRN Pain Ceftriaxone Sodium 2 gm/ 50 mls @ 100 mls/hr 12/21/23 09:00 12/22/23 09:04 Sodium Chloride IVPB 100 mls/hr Q24HR STEFANY Administration Protocol Metronidazole 500 mg/ IV 100 mls @ 100 mls/hr 12/21/23 00:00 12/22/23 09:04 Solution IVPB 100 mls/hr Q8HR STEFANY Administration Protocol Sodium Chloride 1,000 mls @ 75 mls/hr 12/20/23 18:45 12/21/23 21:49 Saline 0.9% IV 75 mls/hr .[id number] STEFANY Administration Lactated Ringer's 1,000 mls @ 20 mls/hr 12/21/23 12:30 12/21/23 13:30 Lactated Ringers IV 20 mls/hr .Q24H STEFANY Administration Diltiazem HCl 125 mg/ Sodium 125 mls @ 5 mls/hr 12/21/23 18:45 12/21/23 20:16 Chloride IV 21 mls .Q24H STEFANY Administration 5 MG/HR Levothyroxine Sodium 112 mcg 12/21/23 10:00 12/22/23 06:31 Levothyroxine 112 Mcg Tab PO 112 mcg 0630 STEFANY Administration Metoprolol Tartrate 50 mg 12/21/23 10:00 12/22/23 09:04 Metoprolol Tartrate 50 Mg Tab PO 50 mg BID STEFANY Administration Naloxone HCl 0.2 mg 12/20/23 18:36 Naloxone 0.4 Mg/Ml 1 Ml Vial IV Q2M PRN Opioid Reversal Ondansetron HCl 4 mg 12/21/23 17:50 Ondansetron 4 Mg/2 Ml Vial IVP Q6HR PRN Nausea And Vomiting Paroxetine HCl 30 mg 12/21/23 10:00 12/22/23 09:53 Paroxetine 10 Mg Tab PO 30 mg DAILY STEFANY Administration Prednisolone Acetate 1 drops 12/21/23 10:00 12/22/23 09:05 Prednisolone Acetate 1% Ophth Drops 5 Ml Btl RIGHT EYE 12/25/23 23:00 1 drops DAILY STEFANY Administration Prednisolone Acetate 1 drops 12/21/23 10:00 12/22/23 09:05 Prednisolone Acetate 1% Ophth Drops 5 Ml Btl LEFT EYE 12/22/23 23:00 1 drops QID STEFANY Administration Prednisolone Acetate 1 drops 12/23/23 09:00 Prednisolone Acetate 1% Ophth Drops 5 Ml Btl LEFT EYE 12/29/23 23:00 BID STEFANY Prednisolone Acetate 1 drops 12/30/23 09:00 Prednisolone Acetate 1% Ophth Drops 5 Ml Btl LEFT EYE 01/05/24 23:00 DAILY STEFANY Intake and Output 12/21/23 12/22/23 12/22/23 22:59 06:59 14:59 Intake Total 1441 110 Output Total 655 500 Balance 786 -500 110 Intake: IV 1441 Invasive Line 1 10 Invasive Line 2 10 Oral 110 Output: Urine 650 500 Estimated Blood Loss 5 Other: Voiding Method Indwelling Catheter Indwelling Catheter # Voids 1 # Bowel Movements 1 Weight 54.431 kg 12/21/23 08:18 12/21/23 08:18
[2023-12-22 14:36] VITALS: BMI 18.8
[2023-12-23] MEDS ORDERED: prednisoLONE ACETATE 1% OPHTH DROPS 5 ML BTL LEFT EYE SCH (09:00)
--- NOTE | 2023-12-24 10:40 | P.DS ---
Providers Date of admission: 12/20/23 18:40 Expected date of discharge: 12/22/23 Attending physician: Imtiaz Bolanos Consults: 12/20/23 18:36 Consult Physician Routine Consulting Provider: Malcolm Marroquin Consult Reason/Comments: pain Do you want consulting provider notified?: Yes 12/21/23 19:53 Consult Physician Urgent Consulting Provider: Meño Wilson Consult Reason/Comments: new onset afib Do you want consulting provider notified?: Already Contacted Primary care physician: Francisco Javier Dawson Hospital Course: Final diagnosis Abdominal pain with nausea, vomiting, diarrhea likely secondary to small bowel obstruction with loops noted in the right inguinal hernia on CT, status post laparoscopic bilateral inguinal hernia repair Lactic acidosis, present on admission likely secondary to vomiting and diarrhea, improved Atrial fibrillation with RVR, new onset, currently rate controlled History of inguinal hernia Hypertension history GERD History of osteoarthritis Hypothyroidism History of squamous cell skin cancer History of depression GI prophylaxis DVT prophylaxis Full code Discharge disposition Patient is being discharged in a stable condition with guarded prognosis to home. Patient will follow-up with Dr. Francisco Javier Dawson in the outpatient setting upon discharge. Patient is to continue with antibiotics outpatient and close outpatient follow-up with general surgery as scheduled. Total time taken is greater than 35 minutes. Hospital course This is a 78-year-old female who was recently admitted with abdominal pain with nausea and vomiting and found to have bilateral inguinal hernias with small bowel obstruction secondary to loops being within the hernias. Patient evaluated by general surgery recommending intervention and patient and family a re agreeable. Patient is status post laparoscopic bilateral inguinal hernia repair. Patient also noted to have atrial fibrillation with RVR postsurgery and started on Cardizem drip. Patient also initiated on heparin and is being transition to Eliquis starting 12/23/2023 per surgery. Patient evaluated by cardiology this morning currently rate controlled and has been started on metoprolol. Patient has been cleared by consultations and patient would like to go home. Please refer to other consultation notes for further HPI. Currently no reports of chest pain, shortness of breath, or palpitations. Patient is afebrile. No reports of nausea or vomiting and patient is tolerating diet. Patient will be discharged home today. Guarded prognosis Physical exam: Gen: This is a 78-year-old female who is awake, alert and oriented x 3, well- developed, thin built, elderly appearing HEENT: Head is atraumatic, normocephalic. Pupils equal, round. Sclerae is anicteric. NECK: Supple. No JVD. No lymphadenopathy. No thyromegaly. LUNGS: Clear to auscultation. No wheezes or rhonchi. No intercostal retractions. HEART: Regular rate and rhythm. No murmur. ABDOMEN: Soft. Mildly tender in the lower abdominal region. Bowel sounds are present. No masses. EXTREMITIES: No pedal edema. No calf tenderness. NEUROLOGICAL: Patient is awake, alert and oriented x3. Cranial nerves 2 through 12 are grossly intact. Please refer to medication reconciliation sheet for a list of medications. The impression and plan of care has been dictated by Shirley Simon, Nurse Practitioner as directed. Dr. Sandy MD I have performed a history and examination and MDM of this patient, discussed the same with the dictator, and agree with the dictator's assessment and plan as written ,documented as a scribe. Based on total visit time, I have performed more than 50% of the visit. Patient Condition at Discharge: Fair Plan - Discharge Summary Discharge Rx Participant: No New Discharge Prescriptions: New Apixaban [Eliquis] 5 mg PO BID #180 tab HYDROcodone/APAP 5-325MG [[place] 5-325] 1 tab PO Q6HR PRN 3 Days #12 tab PRN Reason: Pain cefUROXime axetiL [Ceftin] 500 mg PO BID 7 Days #14 tab metroNIDAZOLE [Flagyl] 500 mg PO TID 7 Days #21 tab Continue Levothyroxine Sodium [Synthroid] 112 mcg PO DAILY Metoprolol Tartrate [Lopressor] 50 mg PO BID Pantoprazole Sodium [Protonix] 40 mg PO DAILY PARoxetine HCL 30 mg PO DAILY prednisoLONE ACETATE 1% OPHTH [Pred Forte 1%] 1 drop RIGHT EYE DAILY Prednisolone Acetate/Pf [Prednisolone Acet 1% Eye Drop] See Taper LEFT EYE DIRECTED HYDROcodone/APAP 5-325MG [[place] 5-325] 1 tab PO BID PRN PRN Reason: Pain Discontinued amLODIPine [Norvasc] 10 mg PO DAILY Losartan [Cozaar] 50 mg PO DAILY Discharge Medication List Levothyroxine Sodium [Synthroid] 112 mcg PO DAILY 03/18/14 [History] Metoprolol Tartrate [Lopressor] 50 mg PO BID 06/22/22 [History] Pantoprazole Sodium [Protonix] 40 mg PO DAILY 12/29/22 [History] HYDROcodone/APAP 5-325MG [[place] 5-325] 1 tab PO BID PRN 12/20/23 [History] PARoxetine HCL 30 mg PO DAILY 12/20/23 [History] Prednisolone Acetate/Pf [Prednisolone Acet 1% Eye Drop] See Taper LEFT EYE DIRECTED 12/20/23 [History] prednisoLONE ACETATE 1% OPHTH [Pred Forte 1%] 1 drop RIGHT EYE DAILY 12/20/23 [History] Apixaban [Eliquis] 5 mg PO BID #180 tab 12/22/23 [Rx] HYDROcodone/APAP 5-325MG [[place] 5-325] 1 tab PO Q6HR PRN 3 Days #12 tab 12/22/23 [Rx] cefUROXime axetiL [Ceftin] 500 mg PO BID 7 Days #14 tab 12/22/23 [Rx] metroNIDAZOLE [Flagyl] 500 mg PO TID 7 Days #21 tab 12/22/23 [Rx] Follow up Appointment(s)/Referral(s): Randell Shane MD [STAFF PHYSICIAN] - 2 Weeks (Office will call to set up your follow-up appointment.) Francisco Javier Dawson MD [Primary Care Provider] - 1-2 Days (Office closed on Fridays; please call to make a follow-up appointment.) Malcolm Marroquin MD [STAFF PHYSICIAN] - 12/27/23 11:50 am Activity/Diet/Wound Care/Special Instructions: Activity limited until follow-up Follow-up with general surgery outpatient Follow-up with cardiology outpatient Continue taking medications as prescribed Per cardiology okay to start Eliquis starting 12/23/2023 Discharge Disposition: HOME SELF-CARE
[2023-12-30] MEDS ORDERED: prednisoLONE ACETATE 1% OPHTH DROPS 5 ML BTL LEFT EYE SCH (09:00)
== END 2023-12-22 14:16 | disposition home or self-care (01) | DRG 351 ==
LOC: EC 14:40 → 4SSUR 18:40 → 3SCARD 12-21 18:28
PROVIDERS: ADMIT Hospitalist; ATTEND Hospitalist
PROC: 8E0W4CZ Robotic Assisted Procedure of Trunk Region, Percutaneous Endoscopic Approach (ICD-10-PCS; 2023-12-21)
PROC: 0YUA4JZ Supplement Bilateral Inguinal Region with Synthetic Substitute, Percutaneous Endoscopic Approach (ICD-10-PCS; principal; 2023-12-21 08:30)
DX: K40.00 Bilateral inguinal hernia, with obstruction, without gangrene, not specified as recurrent (principal); E87.20 Acidosis, unspecified; K21.9 Gastro-esophageal reflux disease without esophagitis; E03.9 Hypothyroidism, unspecified; E78.5 Hyperlipidemia, unspecified; E86.0 Dehydration; F32.A Depression, unspecified; I10 Essential (primary) hypertension; M19.90 Unspecified osteoarthritis, unspecified site; I48.91 Unspecified atrial fibrillation; Z96.641 Presence of right artificial hip joint; Z96.653 Presence of artificial knee joint, bilateral; Z79.01 Long term (current) use of anticoagulants; Z79.82 Long term (current) use of aspirin; Z79.890 Hormone replacement therapy; Z79.899 Other long term (current) drug therapy; Z85.828 Personal history of other malignant neoplasm of skin; Z88.5 Allergy status to narcotic agent; Z88.0 Allergy status to penicillin; Z88.8 Allergy status to other drugs, medicaments and biological substances
CPT/HCPCS: 36415; 74177; 80053; 81001; 82150; 83605; 83690; 83735; 84100; 85025; 96361; 96365; 96366; 96368; 96375; 99285

== ENCOUNTER 2024-01-12 22:47 | Emergency (ER) | payer MEDICARE ==
[2024-01-12 23:39] LABS: Prothrombin Time 10.9 sec (10.0-12.5)
[2024-01-12 23:42] LABS: ALT 19 U/L (4-34); AST 34 U/L (14-36); African American GFR (CKD) >90 (>60 ml/min/1.73 sqM); Albumin 3.7 g/dL (3.5-5.0); Alkaline Phosphatase 68 U/L (38-126); Anion Gap 9 mmol/L; Blood Urea Nitrogen 16 mg/dL (7-17); Calcium 8.9 mg/dL (8.4-10.2); Carbon Dioxide 20 mmol/L (22-30); Chloride 103 mmol/L (98-107); Glucose 121 mg/dL (74-99); Non-African American GFR(CKD) 84 (>60 ml/min/1.73 sqM); Potassium 3.9 mmol/L (3.5-5.1); Sodium 132 mmol/L (137-145); Total Bilirubin 0.9 mg/dL (0.2-1.3); Total Protein 6.6 g/dL (6.3-8.2)
[2024-01-12 23:48] VITALS: RESP 16
[2024-01-12 23:52] LABS: Basophils # (A) 0.1 k/uL (0-0.2); Basophils % (A) 0 %; Eosinophils # (A) 0.1 k/uL (0-0.7); Eosinophils % (A) 0 %; HCT 39.7 % (34.0-46.0); HGB 13.7 gm/dL (11.4-16.0); Lymphocytes # (A) 0.9 k/uL (1.0-4.8); Lymphocytes % (A) 8 %; MCH 32.3 pg (25.0-35.0); MCHC 34.4 g/dL (31.0-37.0); MCV 93.8 fL (80.0-100.0); Mean Platelet Volume 9.3; Monocytes # (A) 1.4 k/uL (0-1.0); Monocytes % (A) 13 %; Neutrophils # (A) 8.4 k/uL (1.3-7.7); Neutrophils % (A) 75 %; Platelet Count 212 k/uL (150-450); RBC 4.24 m/uL (3.80-5.40); RDW 13.3 % (11.5-15.5); WBC 11.2 k/uL (3.8-10.6)
[2024-01-13] MEDS: ACETAMINOPHEN TAB 500 MG TAB PO STA (00:19)
[2024-01-13 00:47] LABS: Appearance,Urine Clear (Clear); Bacteria,Urine Few /hpf; Bilirubin,Urine Negative (Negative); Blood,Urine Small (Negative); Color,Urine Colorless; Glucose,Urine (UA) Negative (Negative); Ketones,Urine Negative (Negative); Leukocyte Esterase,Urine Moderate (Negative); Mucus,Urine Rare /hpf; Nitrite,Urine Negative (Negative); PH, Urine 5.5 (5.0-8.0); Protein,Urine Trace (Negative); RBC,Urine 6 /hpf (0-5); Specific Gravity,Urine 1.007 (1.001-1.035); Squamous Epithelial Cell,Urine <1 /hpf (0-4); Urobilinogen,Urine <2.0 mg/dL (<2.0); WBC,Urine 17 /hpf (0-5)
--- NOTE | 2024-01-13 01:09 | ED ---
General Adult HPI - General Chief complaint: Weakness Stated complaint: weakness Time Seen by Provider: 01/12/24 22:54 Source: patient Mode of arrival: wheelchair Limitations: no limitations - History of Present Illness Initial comments: 78-year-old female presenting to the ED with complaints of generalized weakness. Patient reports over the past week has had some increased fatigue and chills. States today felt so generally weak was having difficulties moving around the house. No chest pain shortness of breath. No abdominal pain. Denies urinary symptoms. No changes in bowel habits. No other complaints at this time. - Related Data Home Medications Medication Instructions Recorded Confirmed Levothyroxine Sodium [Synthroid] 112 mcg PO DAILY 03/18/14 12/21/23 Metoprolol Tartrate [Lopressor] 50 mg PO BID 06/22/22 12/21/23 Pantoprazole Sodium [Protonix] 40 mg PO DAILY 12/29/22 12/21/23 HYDROcodone/APAP 5-325MG [[place] 1 tab PO BID PRN 12/20/23 12/20/23 5-325] PARoxetine HCL 30 mg PO DAILY 12/20/23 12/21/23 Prednisolone Acetate/Pf See Taper LEFT EYE DIRECTED 12/20/23 12/21/23 [Prednisolone Acet 1% Eye Drop] prednisoLONE ACETATE 1% OPHTH 1 drop RIGHT EYE DAILY 12/20/23 12/21/23 [Pred Forte 1%] Previous Rx's Medication Instructions Recorded Apixaban [Eliquis] 5 mg PO BID #180 tab 12/22/23 HYDROcodone/APAP 5-325MG [[place] 1 tab PO Q6HR PRN 3 Days #12 tab 12/22/23 5-325] cefUROXime axetiL [Ceftin] 500 mg PO BID 7 Days #14 tab 12/22/23 metroNIDAZOLE [Flagyl] 500 mg PO TID 7 Days #21 tab 12/22/23 Cephalexin [Keflex] 500 mg PO Q6HR 7 Days #28 cap 01/13/24 Allergies Allergy/AdvReac Type Severity Reaction Status Date / Time Penicillins Allergy Itching Verified 01/12/24 22:50 morphine AdvReac Severe Rash/Hives, Verified 01/12/24 22:50 itching Gyuxmyy-IGO-YtH Reductase AdvReac Due to Verified 01/12/24 22:50 Inhibitor Bleeding [Jqykgzd-Yjl-Taj Reductase ulcers Inhibitor] Review of Systems ROS Statement: Those systems with pertinent positive or pertinent negative responses have been documented in the HPI. ROS Other: All systems not noted in ROS Statement are negative. Past Medical History Past Medical History: Cancer, GERD/Reflux, Hypertension, Osteoarthritis (OA), Thyroid Disorder Additional Past Medical History / Comment(s): squamous cell skin cancer., pt was hospitalized 06/22 to 06/27/22 for bleeding in stomach. History of Any Multi-Drug Resistant Organisms: None Reported Past Surgical History: Joint Replacement, Orthopedic Surgery, Tonsillectomy Additional Past Surgical History / Comment(s): squamous skin cancer off nose, [place]ise[place] total knee surgeries., shoulder surgery., R total hip. colonoscopy, EGD. Past Anesthesia/Blood Transfusion Reactions: Previous Problems w/ Anesthesia Additional Past Anesthesia/Blood Transfusion Reaction / Comment(s): stated "b/p was very low and irregular w/ spinal for total rt hip --20.". no hx blood transfusion Past Psychological History: Depression Smoking Status: Never smoker Past Alcohol Use History: None Reported Past Drug Use History: Marijuana - Past Family History Daughter(s) Family Medical History: Cancer Additional Family Medical History / Comment(s): OVARIAN CANCER, 2013 General Exam Limitations: no limitations General appearance: alert, in no apparent distress Eye exam: Present: normal appearance Neck exam: Present: normal inspection Respiratory exam: Present: normal lung sounds bilaterally. Absent: respiratory distress Cardiovascular Exam: Present: regular rate, normal rhythm GI/Abdominal exam: Present: soft, normal bowel sounds, other (No CVA tenderness to percussion bilaterally.). Absent: distended, tenderness, guarding, rebound, rigid Neurological exam: Present: alert, oriented X3 Skin exam: Present: warm, dry Course Vital Signs 01/12/24 01/12/24 01/13/24 22:48 23:31 00:01 Temperature 100.6 F H Pulse Rate 87 70 83 Respiratory 18 16 16 Rate Blood Pressure 128/74 120/73 120/73 O2 Sat by Pulse 93 L 92 L 93 L Oximetry 01/13/24 01:07 Temperature 99.2 F Pulse Rate Respiratory Rate Blood Pressure O2 Sat by Pulse Oximetry Medical Decision Making - Medical Decision Making Was pt. sent in by a medical professional or institution (, PA, TRUCK RENTAL MANAGER, urgent care, hospital, or long-term...) When possible be specific @ -No Did you speak to anyone other than the patient for history (EMS, parent, family, police, friend...)? What history was obtained from this source @ -No Did you review nursing and triage notes (agree or disagree)? Why? @ -I reviewed and agree with nursing and triage notes Were old charts reviewed (outside hosp., previous admission, EMS record, old EKG, old radiological studies, urgent care reports/EKG's, long-term records)? Report findings @ -No old charts were reviewed Differential Diagnosis (chest pain, altered mental status, abdominal pain women, abdominal pain men, vaginal bleeding, weakness, fever, dyspnea, syncope, headache, dizziness, GI bleed, back pain, seizure, CVA, palpatations, mental health, musculoskeletal)? @ -Differential Weakness: Hypoglycemia, shock, sepsis, hyponatremia, anemia, infection, AL, ETOH, adverse medicine reaction, overdose, stroke, this is not meant to be an all-inclusive list. EKG interpreted by me (3pts min.). @ -None X-rays interpreted by me (1pt min.). @ -None done CT interpreted by me (1pt min.). @ -None done U/S interpreted by me (1pt. min.). @ -None done What testing was considered but not performed or refused? (CT, X-rays, U/S, labs)? Why? @ -None What meds were considered but not given or refused? Why? @ -None Did you discuss the management of the patient with other professionals (professionals i.e. , PA, TRUCK RENTAL MANAGER, lab, RT, psych nurse, social services designee, nitriles lab technician, teacher, staff air tactical officer, case consultant)? Give summary @ -No Was smoking cessation discussed for >3mins.? @ -No Was critical care preformed (if so, how long)? @ -No Were there social determinants of health that impacted care today? How? (Homelessness, low income, unemployed, alcoholism, drug addiction, transportation, low edu. Level, literacy, decrease access to med. care, alf, rehab)? @ -No Was there de-escalation of care discussed even if they declined (Discuss DNR or withdrawal of care, Hospice)? DNR status @ -No What co-morbidities impacted this encounter? (DM, HTN, Smoking, COPD, CAD, Cancer, CVA, ARF, Chemo, Hep., AIDS, mental health diagnosis, sleep apnea, morbid obesity)? @ -None Was patient admitted / discharged? Hospital course, mention meds given and route, prescriptions, significant lab abnormalities, going to OR and other pertinent info. @ -Discharge 78-year-old female presents to the ED with complaints of chills, fatigue, generalized weakness. Exam unremarkable at this time showing full strength and sensation in bilateral lower extremities. Laboratory studies reviewed. CBC shows an elevated white blood cell count 11.2. Neutrophils elevated 8.4. Chemistry panel largely unremarkable. UA does show some evidence of infection with moderate leukocyte Estrace, 17 white blood cells, rare white blood cell clumps, and few bacteria. Vital signs reviewed. Initially, patient found to be febrile. Was provided Tylenol with resolution of fever and significant improvement of generalized weakness. I ambulated the patient myself in the ED and she had no significant difficulties ambulating. With evidence of UTI, urine culture obtained. Patient provided 1 g of ceftriaxone here in the ED and disch arged home with prescription for Keflex. Discussed return precautions with patient and family who verbalized agreement. Undiagnosed new problem with uncertain prognosis? @ -No Drug Therapy requiring intensive monitoring for toxicity (Heparin, Nitro, Insulin, Cardizem)? @ -No Were any procedures done? @ -No Diagnosis/symptom? @ -Fatigue, generalized weakness, urinary tract infection Acute, or Chronic, or Acute on Chronic? @ -Acute Uncomplicated (without systemic symptoms) or Complicated (systemic symptoms)? @ -Uncomplicated Side effects of treatment? @ -No Exacerbation, Progression, or Severe Exacerbation? @ -No Poses a threat to life or bodily function? How? (Chest pain, USA, AL, pneumonia, PE, COPD, DKA, ARF, appy, cholecystitis, CVA, Diverticulitis, Homicidal, Suicidal, threat to staff... and all critical care pts) @ -No - Lab Data Result diagrams: 01/12/24 23:12 01/12/24 23:12 Lab Results 01/12/24 01/12/24 01/12/24 Range/Units 23:12 23:12 23:12 WBC 11.2 H (3.8-10.6) k/uL RBC 4.24 (3.80-5.40) m/uL Hgb 13.7 (11.4-16.0) gm/dL Hct 39.7 (34.0-46.0) % MCV 93.8 (80.0-100.0) fL MCH 32.3 (25.0-35.0) pg MCHC 34.4 (31.0-37.0) g/dL RDW 13.3 (11.5-15.5) % Plt Count 212 (150-450) k/uL MPV 9.3 Neutrophils % 75 % Lymphocytes % 8 % Monocytes % 13 % Eosinophils % 0 % Basophils % 0 % Neutrophils # 8.4 H (1.3-7.7) k/uL Lymphocytes # 0.9 L (1.0-4.8) k/uL Monocytes # 1.4 H (0-1.0) k/uL Eosinophils # 0.1 (0-0.7) k/uL Basophils # 0.1 (0-0.2) k/uL PT 10.9 (10.0-12.5) sec INR 1.0 (<1.2) APTT 27.0 (22.0-30.0) sec Sodium 132 L (137-145) mmol/L Potassium 3.9 (3.5-5.1) mmol/L Chloride 103 (98-107) mmol/L Carbon Dioxide 20 L (22-30) mmol/L Anion Gap 9 mmol/L BUN 16 (7-17) mg/dL Creatinine 0.66 (0.52-1.04) mg/dL Est GFR (CKD-EPI)AfAm >90 (>60 ml/min/1.73 sqM) Est GFR (CKD-EPI)NonAf 84 (>60 ml/min/1.73 sqM) Glucose 121 H (74-99) mg/dL Calcium 8.9 (8.4-10.2) mg/dL Total Bilirubin 0.9 (0.2-1.3) mg/dL AST 34 (14-36) U/L ALT 19 (4-34) U/L Alkaline Phosphatase 68 (38-126) U/L Troponin I (0.000-0.034) ng/mL Total Protein 6.6 (6.3-8.2) g/dL Albumin 3.7 (3.5-5.0) g/dL Urine Color Urine Appearance (Clear) Urine pH (5.0-8.0) Ur Specific [place] (1.001-1.035) Urine Protein (Negative) Urine Glucose (UA) (Negative) Urine Ketones (Negative) Urine Blood (Negative) Urine Nitrite (Negative) Urine Bilirubin (Negative) Urine Urobilinogen (<2.0) mg/dL Ur Leukocyte Esterase (Negative) Urine RBC (0-5) /hpf Urine WBC (0-5) /hpf Urine WBC Clumps (None) /hpf Ur Squamous Epith Cells (0-4) /hpf Urine Bacteria (None) /hpf Urine Mucus (None) /hpf Influenza Type A (PCR) (Not Detectd) Influenza Type B (PCR) (Not Detectd) RSV (PCR) (Not Detectd) SARS-CoV-2 (PCR) (Not Detectd) 01/12/24 01/12/24 01/13/24 Range/Units 23:12 23:31 00:21 WBC (3.8-10.6) k/uL RBC (3.80-5.40) m/uL Hgb (11.4-16.0) gm/dL Hct (34.0-46.0) % MCV (80.0-100.0) fL MCH (25.0-35.0) pg MCHC (31.0-37.0) g/dL RDW (11.5-15.5) % Plt Count (150-450) k/uL MPV Neutrophils % % Lymphocytes % % Monocytes % % Eosinophils % % Basophils % % Neutrophils # (1.3-7.7) k/uL Lymphocytes # (1.0-4.8) k/uL Monocytes # (0-1.0) k/uL Eosinophils # (0-0.7) k/uL Basophils # (0-0.2) k/uL PT (10.0-12.5) sec INR (<1.2) APTT (22.0-30.0) sec Sodium (137-145) mmol/L Potassium (3.5-5.1) mmol/L Chloride (98-107) mmol/L Carbon Dioxide (22-30) mmol/L Anion Gap mmol/L BUN (7-17) mg/dL Creatinine (0.52-1.04) mg/dL Est GFR (CKD-EPI)AfAm (>60 ml/min/1.73 sqM) Est GFR (CKD-EPI)NonAf (>60 ml/min/1.73 sqM) Glucose (74-99) mg/dL Calcium (8.4-10.2) mg/dL Total Bilirubin (0.2-1.3) mg/dL AST (14-36) U/L ALT (4-34) U/L Alkaline Phosphatase (38-126) U/L Troponin I <0.012 (0.000-0.034) ng/mL Total Protein (6.3-8.2) g/dL Albumin (3.5-5.0) g/dL Urine Color Colorless Urine Appearance Clear (Clear) Urine pH 5.5 (5.0-8.0) Ur Specific [place] 1.007 (1.001-1.035) Urine Protein Trace H (Negative) Urine Glucose (UA) Negative (Negative) Urine Ketones Negative (Negative) Urine Blood Small H (Negative) Urine Nitrite Negative (Negative) Urine Bilirubin Negative (Negative) Urine Urobilinogen <2.0 (<2.0) mg/dL Ur Leukocyte Esterase Moderate H (Negative) Urine RBC 6 H (0-5) /hpf Urine WBC 17 H (0-5) /hpf Urine WBC Clumps Rare H (None) /hpf Ur Squamous Epith Cells <1 (0-4) /hpf Urine Bacteria Few H (None) /hpf Urine Mucus Rare H (None) /hpf Influenza Type A (PCR) Not Detected (Not Detectd) Influenza Type B (PCR) Not Detected (Not Detectd) RSV (PCR) Not Detected (Not Detectd) SARS-CoV-2 (PCR) Not Detected (Not Detectd) Disposition Clinical Impression: Urinary tract infection Disposition: HOME SELF-CARE Condition: Good Instructions (If sedation given, give patient instructions): Urinary Tract Infection in Women (ED) Additional Instructions: Please return to the Emergency Department if symptoms worsen or any other concerns. Please follow-up with your PCP. Prescriptions: Cephalexin [Keflex] 500 mg PO Q6HR 7 Days #28 cap Is patient prescribed a controlled substance at d/c from ED?: No Referrals: Gary Dawson MD [Primary Care Provider] - 1-2 days Time of Disposition: 01:15
[2024-01-13 01:18] VITALS: TEMP 99.2
[2024-01-13] MEDS: cefTRIAXone IN SWFI 1,000 MG/10 ML SYRINGE IVP STA (01:37)
[2024-01-13 01:52] VITALS: BP 136/68; PULSE 70
== END 2024-01-13 01:42 | disposition home or self-care (01) ==
LOC: EC 22:47
DX: N39.0 Urinary tract infection, site not specified (principal); I10 Essential (primary) hypertension; E07.9 Disorder of thyroid, unspecified; K21.9 Gastro-esophageal reflux disease without esophagitis; F32.A Depression, unspecified; Z79.890 Hormone replacement therapy; Z79.899 Other long term (current) drug therapy; Z20.822 Contact with and (suspected) exposure to COVID-19; Z88.0 Allergy status to penicillin; Z88.5 Allergy status to narcotic agent; Z88.8 Allergy status to other drugs, medicaments and biological substances
CPT/HCPCS: 36415; 80053; 84484; 85025; 85610; 85730; 81001; 87086; 87636; 99285; 96374; J0696; 87077; 87186